=== PATIENT | female | born 1990 | race Caucasian/White ===

== ENCOUNTER 2017-10-08 13:53 | Emergency (ER) | payer BC ==
--- NOTE | 2017-10-08 14:41 | EDM.PDOC ---
ED HPI GENERAL MEDICAL PROBLEM - General Chief Complaint: Respiratory Problem Stated Complaint: COLD Time Seen by Provider: 10/08/17 13:54 Source of Information: Reports: Patient History Limitations: Reports: No Limitations - History of Present Illness INITIAL COMMENTS - FREE TEXT/NARRATIVE: HISTORY AND PHYSICAL: History of present illness: [Radha is a 27-year-old female here for cold symptoms 6 days. She states that she has had a cough, congestion, a ears feel full, burning in her lungs. She denies any fevers, nausea, vomiting, diarrhea, abdominal pain. She's not been taking anything for her symptoms. She does not smoke.] Review of systems: As per history of present illness and below otherwise all systems reviewed and negative. Past medical history: As per history of present illness and as reviewed below otherwise noncontributory. Surgical history: As per history of present illness and as reviewed below otherwise noncontributory. Social history: No reported history of drug or alcohol abuse. Family history: As per history of present illness and as reviewed below otherwise noncontributory. Physical exam: HEENT: Atraumatic, normocephalic, pupils reactive, negative for conjunctival pallor or scleral icterus, mucous membranes moist, throat clear, neck supple, nontender, trachea midline. Lungs: Clear to auscultation, breath sounds equal bilaterally, chest nontender. Heart: S1S2, regular, negative for clicks, rubs, or JVD. Abdomen: Soft, nondistended, nontender. Negative for masses or hepatosplenomegaly. Negative for costovertebral tenderness. Pelvis: Stable nontender. Genitourinary: Deferred. Rectal: Deferred. Extremities: Atraumatic, negative for cords or calf pain. Neurovascular unremarkable. Neuro: Awake, alert, oriented. Cranial nerves II through XII unremarkable. Cerebellum unremarkable. Motor and sensory unremarkable throughout. Exam nonfocal. Notes: Diagnostics: [Rapid strep, influenza, CBC, chest x-ray] Therapeutics: [] Impression: [Acute bronchitis] Plan: [#1 use inhaler every 4-6 hours as needed as discussed #2 follow-up with your primary care provider. Return to the ED as needed as discussed.] Definitive disposition and diagnosis as appropriate pending reevaluation and review of above. Onset: Gradual Duration: Week(s): (1) Bilateral Chest Pain Score (Numeric/FACES): 7 - Related Data Allergies Allergy/AdvReac Type Severity Reaction Status Date / Time No Known Allergies Allergy Verified 04/24/14 10:51 Home Meds: Home Meds Albuterol [Ventolin HFA] 1 puff INH Q4HR #1 inhaler 10/08/17 [Rx] Past Medical History - Past Health History Medical/Surgical History: Denies Medical/Surgical History - Infectious Disease History Infectious Disease History: Reports: Chicken Pox Social & Family History - Family History Family Medical History: Noncontributory - Tobacco Use Smoking Status *Q: Light Tobacco Smoker Years of Tobacco use: 10 Packs/Tins Daily: 0.1 Second Hand Smoke Exposure: No - Caffeine Use Caffeine Use: Reports: Coffee, Tea - Alcohol Use Days Per Week of Alcohol Use: 1 Number of Drinks Per Day: 2 Total Drinks Per Week: 2 - Recreational Drug Use Recreational Drug Use: No ED ROS GENERAL - Review of Systems Review Of Systems: ROS reveals no pertinent complaints other than HPI. ED EXAM, GENERAL - Physical Exam Exam: See Below (See dictation) Course - Vital Signs Last Recorded V/S: Last Vital Signs Temp 36.6 C 10/08/17 14:00 Pulse 78 10/08/17 14:00 Resp 14 10/08/17 14:00 BP 111/65 10/08/17 14:00 Pulse Ox 96 10/08/17 14:00 - Orders/Labs/Meds Orders: Active Orders 24 hr Category Date Time Status Chest 2V [CR] Stat Exams 10/08/17 14:16 Taken CULTURE STREP A CONFIRMATION [] Stat Lab 10/08/17 14:30 Results INFLUENZA A+B AG SCREEN [] Stat Lab 10/08/17 14:30 Ordered STREP SCRN A RAPID W CULT CONF [] Stat Lab 10/08/17 14:30 Ordered Labs: Laboratory Tests 10/08/17 Range/Units 14:24 WBC 6.56 (4.0-11.0) K/uL RBC 4.49 (4.30-5.90) M/uL Hgb 13.1 (12.0-16.0) g/dL Hct 40.2 (36.0-46.0) % MCV 89.5 (80.0-98.0) fL MCH 29.2 (27.0-32.0) pg MCHC 32.6 (31.0-37.0) g/dL RDW Std Deviation 44.0 (28.0-62.0) fl RDW Coeff of Crys 13 (11.0-15.0) % Plt Count 253 (150-400) K/uL MPV 9.00 (7.40-12.00) fL Neut % (Auto) 67.9 (48.0-80.0) % Lymph % (Auto) 24.2 (16.0-40.0) % [place] % (Auto) 6.3 (0.0-15.0) % Eos % (Auto) 1.1 (0.0-7.0) % Baso % (Auto) 0.5 (0.0-1.5) % Neut # (Auto) 4.5 (1.4-5.7) K/uL Lymph # (Auto) 1.6 (0.6-2.4) K/uL [place] # (Auto) 0.4 (0.0-0.8) K/uL Eos # (Auto) 0.1 (0.0-0.7) K/uL Baso # (Auto) 0.0 (0.0-0.1) K/uL Nucleated RBC % 0.0 /100WBC Nucleated RBCs # 0 K/uL Departure - Departure Time of Disposition: 15:20 Disposition: Home, Self-Care 01 Condition: Good Clinical Impression: Acute bronchitis Qualifiers: Bronchitis organism: unspecified organism Qualified Code(s): J20.9 - Acute bronchitis, unspecified - Discharge Information Prescriptions: Albuterol [Ventolin HFA] 1 puff INH Q4HR #1 inhaler Referrals: PCP,None [Primary Care Provider] - Forms: ED Department Discharge Additional Instructions: The following information is given to patients seen in the emergency department who are being discharged to home. This information is to outline your options for follow-up care. We provide all patients seen in our emergency department with a follow-up referral. The need for follow-up, as well as the timing and circumstances, are variable depending upon the specifics of your emergency department visit. If you don't have a primary care physician on staff, we will provide you with a referral. We always advise you to contact your personal physician following an emergency department visit to inform them of the circumstance of the visit and for follow-up with them and/or the need for any referrals to a consulting specialist. The emergency department will also refer you to a specialist when appropriate. This referral assures that you have the opportunity for follow-up care with a specialist. All of these measure are taken in an effort to provide you with optimal care, which includes your follow-up. Under all circumstances we always encourage you to contact your private physician who remains a resource for coordinating your care. When calling for follow-up care, please make the office aware that this follow-up is from your recent emergency room visit. If for any reason you are refused follow-up, please contact the [facility] Emergency Department at and asked to speak to the emergency department charge nurse. [#1 use inhaler every 4-6 hours as needed as discussed #2 follow-up with your primary care provider. Return to the ED as needed as discussed.] [facility] [address] [place] [id number] - My Orders Last 24 Hours: My Active Orders 10/08/17 14:16 Chest 2V [CR] Stat 10/08/17 14:30 CULTURE STREP A CONFIRMATION [RM] Stat INFLUENZA A+B AG SCREEN [RM] Stat STREP SCRN A RAPID W CULT CONF [RM] Stat - Assessment/Plan Last 24 Hours: My Active Orders 10/08/17 14:16 Chest 2V [CR] Stat 10/08/17 14:30 CULTURE STREP A CONFIRMATION [RM] Stat INFLUENZA A+B AG SCREEN [RM] Stat STREP SCRN A RAPID W CULT CONF [] Stat
[2017-10-08 16:05] VITALS: BP 114/64
--- NOTE | 2017-10-10 11:19 | CR ---
EXAM DATE: 10/08/17 PATIENT'S AGE: 27 Patient: ANGIE VILLAFUERTE Facility: [place], [place] Site . Site : 1990 Study: XRay Chest [id number]/31/2018 3:02:29 PM Ordering Physician: Doctor Pierson Final Report: INDICATION: Cough TECHNIQUE: Chest radiograph 2 views COMPARISON: None FINDINGS: Mediastinum: The heart silhouette is normal in size and morphology. The mediastinum is normal in appearance. Lungs: Both lungs are unremarkable in appearance. No sign of pleural effusion seen. No pneumothorax is identified. Bones and soft tissue: Unremarkable for age. IMPRESSION: 1. No acute cardiopulmonary disease is seen. Dictated by: Alexandru Montoya MD @ 10/08/2017 15:17:28 (Electronic Signature) Report Signed by Proxy. [facility] MED[facility] CENTERHumera
== END 2017-10-08 16:11 | disposition home or self-care (01) ==
LOC: MW.ED 13:53
DX: J20.9 Acute bronchitis, unspecified (principal); F17.210 Nicotine dependence, cigarettes, uncomplicated
CPT/HCPCS: 36415; 71046; 71046-26; 85025; 87081; 87804; 87880; 99283

== ENCOUNTER 2019-02-05 00:23 | Emergency (ER) | payer BC ==
[2019-02-05] MEDS ORDERED: Ondansetron 4 MG/2 ML SDV IVPUSH ONE (00:24)
[2019-02-05] MEDS ORDERED: Sodium Chloride 0.9% 1,000 ML IV ONE (00:24)
[2019-02-05] MEDS ORDERED: Ketorolac 30 MG/ML SDV IVPUSH ONE (00:24)
--- NOTE | 2019-02-05 00:25 | EDM.PDOC ---
ED HPI GENERAL MEDICAL PROBLEM - General Chief Complaint: Abdominal Pain Stated Complaint: ABDOMINAL PAIN Time Seen by Provider: 02/05/19 00:25 Source of Information: Reports: Patient - History of Present Illness INITIAL COMMENTS - FREE TEXT/NARRATIVE: HISTORY AND PHYSICAL: History of present illness: [PT presents with abdominal pain 5 out of 10 nonradiating throughout the day began after breakfast which included bryan worsen after supper tonight which was spaghetti with meat sauce no fever nausea vomiting chills sweats pain improved with Toradol and fluids Review of systems: As per history of present illness and below otherwise all systems reviewed and negative. Past medical history: As per history of present illness and as reviewed below otherwise noncontributory. Surgical history: As per history of present illness and as reviewed below otherwise noncontributory. Social history: No reported history of drug or alcohol abuse. Family history: As per history of present illness and as reviewed below otherwise noncontributory. Physical exam: HEENT: Atraumatic, normocephalic, pupils reactive, negative for conjunctival pallor or scleral icterus, mucous membranes moist, throat clear, neck supple, nontender, trachea midline. Lungs: Clear to auscultation, breath sounds equal bilaterally, chest nontender. Heart: S1S2, regular, negative for clicks, rubs, or JVD. Abdomen: Soft, nondistended, diffusely tender on exam. Negative for masses or hepatosplenomegaly. Negative for costovertebral tenderness. Pelvis: Stable nontender. Genitourinary: Deferred. Rectal: Deferred. Extremities: Atraumatic, negative for cords or calf pain. Neurovascular unremarkable. Neuro: Awake, alert, oriented. Cranial nerves II through XII unremarkable. Cerebellum unremarkable. Motor and sensory unremarkable throughout. Exam nonfocal. Diagnostics: [CBC CMP UA lipase HCG CT abdomen pelvis with ] Therapeutics: [ normal saline Toradol Zofran Toradol Zofran ] Impression: Abdominal Definitive disposition and diagnosis as appropriate pending reevaluation and review of above. Abdomen Pain Score (Numeric/FACES): 3 - Related Data Allergies Allergy/AdvReac Type Severity Reaction Status Date / Time No Known Allergies Allergy Verified 02/05/19 00:33 Home Meds: Home Meds . [No Known Home Meds] 02/05/19 [History] Past Medical History - Past Health History Medical/Surgical History: Denies Medical/Surgical History - Infectious Disease History Infectious Disease History: Reports: Chicken Pox Social & Family History - Family History Family Medical History: Noncontributory - Caffeine Use Caffeine Use: Reports: Coffee, Tea ED ROS GENERAL - Review of Systems Review Of Systems: See Below ED EXAM, GENERAL - Physical Exam Exam: See Below Course - Vital Signs Last Recorded V/S: Last Vital Signs Temp 97.0 F 02/05/19 00:31 Pulse 77 02/05/19 00:31 Resp 18 02/05/19 00:31 BP 136/76 02/05/19 00:31 Pulse Ox 98 02/05/19 00:31 - Orders/Labs/Meds Labs: Laboratory Tests 02/05/19 02/05/19 02/05/19 Range/Units 00:25 00:25 00:25 WBC 7.28 (4.0-11.0) K/uL RBC 4.81 (4.30-5.90) M/uL Hgb 14.5 (12.0-16.0) g/dL Hct 42.4 (36.0-46.0) % MCV 88.1 (80.0-98.0) fL MCH 30.1 (27.0-32.0) pg MCHC 34.2 (31.0-37.0) g/dL RDW Std Deviation 40.2 (28.0-62.0) fl RDW Coeff of Crys 13 (11.0-15.0) % Plt Count 275 (150-400) K/uL MPV 8.90 (7.40-12.00) fL Neut % (Auto) 46.2 L (48.0-80.0) % Lymph % (Auto) 44.1 H (16.0-40.0) % [place] % (Auto) 8.0 (0.0-15.0) % Eos % (Auto) 1.4 (0.0-7.0) % Baso % (Auto) 0.3 (0.0-1.5) % Neut # (Auto) 3.4 (1.4-5.7) K/uL Lymph # (Auto) 3.2 H (0.6-2.4) K/uL [place] # (Auto) 0.6 (0.0-0.8) K/uL Eos # (Auto) 0.1 (0.0-0.7) K/uL Baso # (Auto) 0.0 (0.0-0.1) K/uL Sodium (136-145) mmol/L Potassium (3.5-5.1) mmol/L Chloride (98-107) mmol/L Carbon Dioxide (21.0-32.0) mmol/L BUN (7.0-18.0) mg/dL Creatinine (0.6-1.0) mg/dL Est Cr Clr Drug Dosing mL/min Estimated GFR (MDRD) ml/min Glucose (74-106) mg/dL Calcium (8.5-10.1) mg/dL Total Bilirubin (0.2-1.0) mg/dL AST (15-37) IU/L ALT (14-63) IU/L Alkaline Phosphatase (46-116) U/L Total Protein (6.4-8.2) g/dL Albumin (3.4-5.0) g/dL Globulin (2.6-4.0) g/dL Albumin/Globulin Ratio (0.9-1.6) Lipase (73-393) U/L Urine Color YELLOW Urine Appearance CLEAR Urine pH 6.0 (5.0-8.0) Ur Specific [place] 1.015 (1.001-1.035) Urine Protein NEGATIVE (NEGATIVE) mg/dL Urine Glucose (UA) NEGATIVE (NEGATIVE) mg/dL Urine Ketones NEGATIVE (NEGATIVE) mg/dL Urine Occult Blood NEGATIVE (NEGATIVE) Urine Nitrite NEGATIVE (NEGATIVE) Urine Bilirubin NEGATIVE (NEGATIVE) Urine Urobilinogen 0.2 (<2.0) EU/dL Ur Leukocyte Esterase NEGATIVE (NEGATIVE) Urine HCG, Qual NEGATIVE (NEGATIVE) 02/05/19 Range/Units 00:25 WBC (4.0-11.0) K/uL RBC (4.30-5.90) M/uL Hgb (12.0-16.0) g/dL Hct (36.0-46.0) % MCV (80.0-98.0) fL MCH (27.0-32.0) pg MCHC (31.0-37.0) g/dL RDW Std Deviation (28.0-62.0) fl RDW Coeff of Crys (11.0-15.0) % Plt Count (150-400) K/uL MPV (7.40-12.00) fL Neut % (Auto) (48.0-80.0) % Lymph % (Auto) (16.0-40.0) % [place] % (Auto) (0.0-15.0) % Eos % (Auto) (0.0-7.0) % Baso % (Auto) (0.0-1.5) % Neut # (Auto) (1.4-5.7) K/uL Lymph # (Auto) (0.6-2.4) K/uL [place] # (Auto) (0.0-0.8) K/uL Eos # (Auto) (0.0-0.7) K/uL Baso # (Auto) (0.0-0.1) K/uL Sodium 139 (136-145) mmol/L Potassium 4.2 (3.5-5.1) mmol/L Chloride 104 (98-107) mmol/L Carbon Dioxide 27.5 (21.0-32.0) mmol/L BUN 20 H (7.0-18.0) mg/dL Creatinine 1.0 (0.6-1.0) mg/dL Est Cr Clr Drug Dosing 82.18 mL/min Estimated GFR (MDRD) > 60.0 ml/min Glucose 89 (74-106) mg/dL Calcium 9.1 (8.5-10.1) mg/dL Total Bilirubin 0.2 (0.2-1.0) mg/dL AST 21 (15-37) IU/L ALT 48 (14-63) IU/L Alkaline Phosphatase 89 (46-116) U/L Total Protein 7.7 (6.4-8.2) g/dL Albumin 4.3 (3.4-5.0) g/dL Globulin 3.4 (2.6-4.0) g/dL Albumin/Globulin Ratio 1.3 (0.9-1.6) Lipase 139 (73-393) U/L Urine Color Urine Appearance Urine pH (5.0-8.0) Ur Specific [place] (1.001-1.035) Urine Protein (NEGATIVE) mg/dL Urine Glucose (UA) (NEGATIVE) mg/dL Urine Ketones (NEGATIVE) mg/dL Urine Occult Blood (NEGATIVE) Urine Nitrite (NEGATIVE) Urine Bilirubin (NEGATIVE) Urine Urobilinogen (<2.0) EU/dL Ur Leukocyte Esterase (NEGATIVE) Urine HCG, Qual (NEGATIVE) Meds: Medications Discontinued Medications Generic Name Dose Route Start Last Admin Trade Name Mitchq PRN Reason Stop Dose Admin Sodium Chloride 1,000 mls @ 999 mls/hr 02/05/19 00:24 02/05/19 00:41 Normal Saline IV 02/05/19 01:24 999 mls/hr STAT ONE Administration Iopamidol 100 ml 02/05/19 01:35 02/05/19 01:35 Isovue Multipack-370 (76%) IVPUSH 02/05/19 01:36 100 ml ONETIME STA Administration Ketorolac Tromethamine 30 mg 02/05/19 00:24 02/05/19 00:41 Toradol IVPUSH 02/05/19 00:25 30 mg ONETIME ONE Administration Ondansetron HCl 8 mg 02/05/19 00:24 02/05/19 00:41 Zofran IVPUSH 02/05/19 00:25 8 mg ONETIME ONE Administration Departure - Departure Time of Disposition: 02:40 Disposition: Home, Self-Care 01 Condition: Good Clinical Impression: Abdominal pain - Discharge Information Forms: ED Department Discharge Additional Instructions: Medication as prescribed Return if symptoms persist or worsen Follow-up with general surgery, call phone number below to schedule appropriate follow-up [facility] - [facility] [address], [address] [place] [address] The following information is given to patients seen in the emergency department who are being discharged to home. This information is to outline your options for follow-up care. We provide all patients seen in our emergency department with a follow-up referral. The need for follow-up, as well as the timing and circumstances, are variable depending upon the specifics of your emergency department visit. If you don't have a primary care physician on staff, we will provide you with a referral. We always advise you to contact your personal physician following an emergency department visit to inform them of the circumstance of the visit and for follow-up with them and/or the need for any referrals to a consulting specialist. The emergency department will also refer you to a specialist when appropriate. This referral assures that you have the opportunity for follow-up care with a specialist. All of these measure are taken in an effort to provide you with optimal care, which includes your follow-up. Under all circumstances we always encourage you to contact your private physician who remains a resource for coordinating your care. When calling for follow-up care, please make the office aware that this follow-up is from your recent emergency room visit. If for any reason you are refused follow-up, please contact the [facility] emergency department at and asked to speak to the emergency department charge nurse.
[2019-02-05 01:12] LABS: BLOOD UREA NITROGEN,BUN 20 mg/dL (7.0-18.0); CARBON DIOXIDE,CO2 27.5 mmol/L (21.0-32.0); CHLORIDE,CL 104 mmol/L (98-107); GLUCOSE RANDOM 89 mg/dL (74-106); LIPASE 139 U/L (73-393); POTASSIUM,K 4.2 mmol/L (3.5-5.1); SODIUM,NA 139 mmol/L (136-145)
[2019-02-05] MEDS ORDERED: Iopamidol 755 MG/ML 500 ML Multipack Bottle IVPUSH STA (01:35)
--- NOTE | 2019-02-05 02:22 | CT ---
INDICATION: abdominal pain, intermittent past [address] ABDOMEN AND PELVIS WITH CONTRAST TECHNIQUE: Multidetector CT imaging was performed through the abdomen and pelvis following intravenous contrast administration using 100 mL Isovue 370. Coronal and sagittal reconstructions were generated. COMPARISON: None. FINDINGS: Lower chest: Lung bases are clear. Liver: Within normal limits. Gallbladder and bile ducts: Partially contracted gallbladder. No gallbladder wall thickening or calcified gallstones. No biliary dilation identified. Pancreas: Unremarkable. Spleen: Normal. Adrenals: No nodules or masses. Kidneys, ureters, and urinary bladder: No renal masses or hydronephrosis. No bladder mass or definite wall thickening. Gastrointestinal tract: Moderate wall thickening of the terminal ileum as seen on images 98-115 of series 201. No bowel obstruction. Normal appendix. Unremarkable colon. Vascular structures: Normal for age. Peritoneum: Minimal free fluid in the low pelvis. No loculated collection suggestive of abscess. No free air identified. Lymph nodes: No pathologically enlarged nodes identified. Reproductive organs: IUD within the uterus. No pelvic masses. Bones: Normal for age. IMPRESSION: 1. Moderate wall thickening of the terminal ileum consistent with nonspecific enteritis. Infectious etiologies and Crohn`s disease are the most likely considerations in a patient of this age. 2. IUD within the uterus. DOMINGA CHAUHAN MD [employer] Dictated by Nasir Chauhan MD @ 02/05/2019 2:20:40 AM Dictated by: Nasir Chauhan MD @ 02/05/2019 02:20:55 (Electronically Signed)
[2019-02-05 02:48] VITALS: BP 118/64; PULSE 71
== END 2019-02-05 02:45 | disposition home or self-care (01) ==
LOC: MW.ED 00:23
DX: R10.9 Unspecified abdominal pain (principal)
CPT/HCPCS: 36415; 74177; 80053; 81003; 81025; 83690; 85025; 96361; 96374; 96375; 99284; J1885; J2405; J7040; Q9967

== ENCOUNTER 2020-03-04 10:34 | Emergency (ER) | payer BC, OTHER ==
[2020-03-04 10:57] VITALS: BP 130/70; PULSE 72
--- NOTE | 2020-03-04 11:26 | EDM.PDOC ---
ED HPI GENERAL MEDICAL PROBLEM - General Chief Complaint: Respiratory Problem Stated Complaint: POSITIVE COVID RESULTS Time Seen by Provider: 03/04/20 10:40 Source of Information: Reports: Patient History Limitations: Reports: No Limitations - History of Present Illness INITIAL COMMENTS - FREE TEXT/NARRATIVE: Presents reporting a feeling of shortness of breath. She had some symptoms of COVID 6 days ago including fever, cough and body aches. She was tested yesterday and is COVID positive. Since her symptoms started, her fever has gone away and her body aches have improved as well as her cough. Her only concern now is a feeling of shortness of breath that includes some "heaviness" over her upper chest. She does not have a primary care provider and her friends told her "you better get checked out". Quarantined and has been working from home. He has no medical problems and takes no medications. Does not smoke cigarettes or vape. - Related Data Allergies Allergy/AdvReac Type Severity Reaction Status Date / Time No Known Allergies Allergy Verified 02/05/19 00:33 Home Meds: Home Meds Doxycycline [Vibramycin] 100 mg PO BID 12/30/14 [History] Sulfamethoxazole/Trimethoprim [Bactrim Ds Tablet] 1 each PO BID 12/30/14 [History] . [No Known Home Meds] 02/05/19 [History] Past Medical History - Past Health History Medical/Surgical History: Denies Medical/Surgical History - Infectious Disease History Infectious Disease History: Reports: Chicken Pox - Past Surgical History HEENT Surgical History: Reports: Naso-Sinus Surgery Social & Family History - Family History Family Medical History: Noncontributory - Caffeine Use Caffeine Use: Reports: Coffee, Tea ED ROS GENERAL - Review of Systems Review Of Systems: Comprehensive ROS is negative, except as noted in HPI. ED EXAM, GENERAL - Physical Exam Exam: See Below Exam Limited By: No Limitations General Appearance: Alert, No Apparent Distress Ears: Normal External Exam Nose: Normal Inspection Throat/Mouth: Normal Inspection Head: Atraumatic, Normocephalic Neck: Normal Inspection Respiratory/Chest: No Respiratory Distress, Lungs Clear, Normal Breath Sounds, Chest Non-Tender Cardiovascular: Normal Peripheral Pulses, Regular Rate, Rhythm, No Edema, No Murmur Extremities: Normal Inspection Neurological: Alert, Oriented Psychiatric: Normal Affect, Normal Mood Skin Exam: Warm, Dry, Intact, Normal Color, No Rash Course - Vital Signs Last Recorded V/S: Last Vital Signs Temp 35.8 C L 03/04/20 10:53 Pulse 72 03/04/20 10:53 Resp 16 03/04/20 10:53 BP 130/70 03/04/20 10:53 Pulse Ox 98 03/04/20 10:53 - Orders/Labs/Meds Orders: Active Orders 24 hr Category Date Time Status EKG 12 Lead [EKG Documentation Completion] [RC] STAT Care 03/04/20 11:17 Ordered Departure - Departure Time of Disposition: 11:27 Disposition: Home, Self-Care 01 Clinical Impression: COVID-19 - Discharge Information Additional Instructions: The following information is given to patients seen in the emergency department who are being discharged to home. This information is to outline your options for follow-up care. We provide all patients seen in our emergency department with a follow-up referral. The need for follow-up, as well as the timing and circumstances, are variable depending upon the specifics of your emergency department visit. If you don't have a primary care physician on staff, we will provide you with a referral. We always advise you to contact your personal physician following an emergency department visit to inform them of the circumstance of the visit and for follow-up with them and/or the need for any referrals to a consulting specialist. The emergency department will also refer you to a specialist when appropriate. This referral assures that you have the opportunity for follow-up care with a specialist. All of these measure are taken in an effort to provide you with optimal care, which includes your follow-up. Under all circumstances we always encourage you to contact your private physician who remains a resource for coordinating your care. When calling for follow-up care, please make the office aware that this follow-up is from your recent emergency room visit. If for any reason you are refused follow-up, please contact the [facility] Emergency Department at and asked to speak to the emergency department charge nurse. 1. Your COVID symptoms seem to be improving. Your lungs are clear, you do not have a fever. Your body aches are improving. An EKG showed no cardiac problems. Tylenol or ibuprofen for fever and body aches. Drink plenty of fluids and rest. 2. Continue your quarantine at home until 14 days since your symptoms started. Sepsis Event Note (ED) - Evaluation Sepsis Screening Result: No Definite Risk - Focused Exam Vital Signs: Vital Signs Temp Pulse Resp BP Pulse Ox 03/04/20 10:53 35.8 C L 72 16 130/70 98 - My Orders Last 24 Hours: My Active Orders 03/04/20 11:17 EKG 12 Lead [EKG Documentation Completion] [RC] STAT - Assessment/Plan Last 24 Hours: My Active Orders 03/04/20 11:17 EKG 12 Lead [EKG Documentation Completion] [RC] STAT
== END 2020-03-04 11:49 | disposition home or self-care (01) ==
LOC: MW.ED 10:34
DX: U07.1 COVID-19 (principal)
CPT/HCPCS: 93005; 99282; 99284-25

== ENCOUNTER 2020-03-04 22:48 | Emergency (ER) | payer BC, OTHER ==
--- NOTE | 2020-03-04 23:21 | EDM.PDOC ---
ED HPI GENERAL MEDICAL PROBLEM - General Chief Complaint: General Stated Complaint: COVID, CHEST, ARM PAIN Time Seen by Provider: 03/04/20 22:57 Source of Information: Reports: Patient History Limitations: Reports: No Limitations - History of Present Illness INITIAL COMMENTS - FREE TEXT/NARRATIVE: 30-year-old female with no past medical history presents with diffuse chest pressure, shortness of breath, runny nose, diffuse myalgia, generalized malaise. She was tested last Tuesday for coronavirus and was informed that she was positive yesterday. She denies fever, chills, sore throat. She was seen earlier today for her symptoms and was discharged. Her physician friend in [place] prescribed her today prednisone 40 mg daily for 8 days and albuterol inhaler. She took her first dose today. She also used her inhaler few hours WEB SERVICES PROFESSIONAL. She does not have a PCP in town. She does not smoke. 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 ROS: A 10-point review of systems, other than pertinent positives and negatives as stated per HPI, is otherwise negative Past medical history: No additional pertinent history Past Surgical history: No additional pertinent history Social history: No additional pertinent history Family history: No additional pertinent history PHYSICAL EXAM General: AOx4, GCS = 15, No distress, speaking full sentences HEENT: dry mucous membrane Neck: supple, no meningismus, no Kernig or Brudzinski Cardiac: S1S2 RRR Respiratory: CTAB, no crackles or rales, no wheezing Abdomen: Soft, nontender, no rebound or guarding, nondistended, no pulsatile mass. Back: nontender Musculoskeletal: NVI distally, no deformity Neuro: No focal deficits, CN 2 - 12 WNL. chest area Pain Score (Numeric/FACES): 7 - Related Data Allergies Allergy/AdvReac Type Severity Reaction Status Date / Time No Known Allergies Allergy Verified 03/04/20 22:58 Home Meds: Home Meds Albuterol Sulfate [Albuterol Sulfate Hfa] 1 inh INH Q6HR PRN 03/04/20 [History] predniSONE [Prednisone] 40 mg PO DAILY 03/04/20 [History] Benzonatate 100 mg PO BID #10 capsule 03/05/20 [Rx] Past Medical History - Past Health History Medical/Surgical History: Denies Medical/Surgical History Cardiovascular History: Reports: None Respiratory History: Reports: None Gastrointestinal History: Reports: None Genitourinary History: Reports: None LEAK DETECTION ENGINEER History: Reports: None Musculoskeletal History: Reports: None Neurological History: Reports: None Psychiatric History: Reports: None Endocrine/Metabolic History: Reports: None Insulin Pump Model and Manager Business Operations: None Hematologic History: Reports: None Immunologic History: Reports: None Oncologic (Cancer) History: Reports: None Dermatologic History: Reports: None - Infectious Disease History Infectious Disease History: Reports: None - Past Surgical History Head Surgeries/Procedures: Reports: None HEENT Surgical History: Reports: Naso-Sinus Surgery Social & Family History - Family History Family Medical History: Noncontributory - Tobacco Use Smoking Status *Q: Never Smoker - Caffeine Use Caffeine Use: Reports: Coffee - Recreational Drug Use Recreational Drug Use: No ED ROS GENERAL - Review of Systems Review Of Systems: Comprehensive ROS is negative, except as noted in HPI. ED EXAM, GENERAL - Physical Exam Exam: See Below (See dictation) EKG INTERPRETATION EKG Interpretation Comments: 70 Bpm, NSR, normal QRS interval, no STEMI. EKG and rhythm strip interpreted by me at 1209 Course - Vital Signs Last Recorded V/S: Last Vital Signs Temp 97 F 03/04/20 23:00 Pulse 71 03/05/20 00:18 Resp 18 03/05/20 00:18 BP 110/80 03/05/20 00:18 Pulse Ox 95 03/05/20 00:18 - Orders/Labs/Meds Orders: Active Orders 24 hr Category Date Time Status Communication Order [RC] STAT Care 03/05/20 00:10 Active - Re-Assessments/Exams Free Text/Narrative Re-Assessment/Exam: 03/05/20 00:26 Patient sat = 97% after ambulation. She has normal vital signs. I advised the patient to return to the ER for reevaluation if symptoms worsened, including fever, worsening pain, or any other worrisome symptoms. I instructed the patient to follow up with their PCP within 2-3 days. MEDICAL DECISION MAKING: I reviewed the patients past medical records, lab and radiographic findings. I discussed the case with the patient. My differential diagnosis included: COVID, pneumonia, ARDS. She was evaluated for the symptoms described in the history of present illness. She was evaluated in the context of the global COVID-19 pandemic, which necessitated consideration that the patient might be at risk for infection with the SARS-CoV-2 virus that causes COVID-19. Institutional protocols and algorithms that pertain to the evaluation of patients at risk for COVID-19 are in a state of rapid change based on information released by regulatory bodies including the CDC and federal and state organizations. These policies and algorithms were followed during the patient's care. I wore full PPE, N95, face shield, gown and gloves throughout my evaluation and care of this patient. I recommended home isolation. given home isolation instructions. Patient was in no respiratory distress, otherwise well appearing. I instructed patient to return immediately for worsening symptoms, sob, chest pain, lightheadedness or other concerns. Patient voiced understanding and questions answered. Departure - Departure Time of Disposition: 00:27 Disposition: Home, Self-Care 01 Condition: Good Clinical Impression: COVID-19 - Discharge Information *PRESCRIPTION DRUG MONITORING PROGRAM REVIEWED*: Not Applicable *COPY OF PRESCRIPTION DRUG MONITORING REPORT IN PATIENT ANASTACIA: Not Applicable Prescriptions: Benzonatate 100 mg PO BID #10 capsule Instructions: COVID-19 Frequently Asked Questions, COVID-19, COVID-19: How to Protect Yourself and Others - CDC, Prevent the Spread of COVID-19 if You Are Sick - CDC Referrals: PCP,None [Primary Care Provider] - Forms: ED Department Discharge Additional Instructions: The need for follow-up, as well as the timing and circumstances, are variable depending upon the specifics of your emergency department visit. If you don't have a primary care physician on staff, we will provide you with a referral. We always advise you to contact your personal physician following an emergency department visit to inform them of the circumstance of the visit and for follow-up with them and/or the need for any referrals to a consulting specialist. The emergency department will also refer you to a specialist when appropriate. This referral assures that you have the opportunity for follow-up care with a specialist. All of these measure are taken in an effort to provide you with optimal care, which includes your follow-up. Under all circumstances we always encourage you to contact your private physician who remains a resource for coordinating your care. When calling for follow-up care, please make the office aware that this follow-up is from your recent emergency room visit. If for any reason you are refused follow-up, please contact the [facility] Emergency Department at and asked to speak to the emergency department charge nurse. If you do not have a primary care doctor, please follow up with the clinics below within 3-5 days. [facility] - Primary Care [address] [place] [id number] [facility] [address] [place] [id number] Sepsis Event Note (ED) - Evaluation Sepsis Screening Result: No Definite Risk - Focused Exam Vital Signs: Vital Signs Temp Pulse Resp BP Pulse Ox 03/05/20 00:18 71 18 110/80 95 03/04/20 23:00 97 F 80 18 139/88 97 - My Orders Last 24 Hours: My Active Orders 03/05/20 00:10 Communication Order [RC] STAT - Assessment/Plan Last 24 Hours: My Active Orders 03/05/20 00:10 Communication Order [RC] STAT
[2020-03-05 00:18] VITALS: BP 110/80; PULSE 71
--- NOTE | 2020-03-05 00:24 | CR ---
INDICATION: Shortness of breath, chest pressure, dizziness, right arm pain. Positive covid TECHNIQUE: Chest radiograph 1 view COMPARISON: 10/08/17 FINDINGS: Mediastinum: The mediastinum is normal in appearance. The heart silhouette is normal in size and morphology. Lung: Both lungs are unremarkable in appearance. No sign of pleural effusion seen. No pneumothorax is identified. Bone and Soft tissue: Unremarkable for age. IMPRESSION: 1. No acute cardiopulmonary disease is seen. Dictated by: Alexandru Montoya MD @ 03/05/2020 00:23:13 (Electronically Signed)
== END 2020-03-05 00:35 | disposition home or self-care (01) ==
LOC: MW.ED 22:48
DX: U07.1 COVID-19 (principal); Z79.899 Other long term (current) drug therapy
CPT/HCPCS: 71045; 71045-26; 93005; 99283; 99285-25

== ENCOUNTER 2020-11-08 18:19 | Emergency (ER) | payer BC ==
[2020-11-08] MEDS ORDERED: Acetaminophen/HYDROcodone 325-10 MG Tab PO ONE (18:38)
--- NOTE | 2020-11-08 18:44 | EDM.PDOC ---
<Cayetano Ramos - Last Filed: 11/08/20 18:38> ED HPI GENERAL MEDICAL PROBLEM - General Stated Complaint: FELL OFF HORSE, RT SIDE PAIN Time Seen by Provider: 11/08/20 18:32 - History of Present Illness INITIAL COMMENTS - FREE TEXT/NARRATIVE: 30-year-old female who is otherwise well presents with left SI joint and left hip pain after falling off a horse. The horse was stationary but was spooked his caused her to come up out of the saddle and landed seated on the horses now just in front of the saddle the horse then spoke again spine leading her to fall she landed relatively flat on her back but primarily on the left SI joint area. Patient drove herself here. She has significant pain with sitting and significant pain with ambulation but is able to ambulate. She did not strike her head she did not lose consciousness she denies any neck or midline back pain no chest pain no shortness of breath no abdominal pain no flank pain no current medications. - Related Data Allergies Allergy/AdvReac Type Severity Reaction Status Date / Time No Known Allergies Allergy Verified 11/08/20 19:20 Home Meds: Home Meds Cyclobenzaprine [Flexeril] 10 mg PO TID PRN #20 tab 11/08/20 [Rx] Ibuprofen 600 mg PO Q6HR PRN #30 tablet 11/08/20 [Rx] traMADol [Ultram] 50 mg PO Q6H PRN #12 tab 11/08/20 [Rx] Past Medical History - Past Health History Medical/Surgical History: Denies Medical/Surgical History Cardiovascular History: Reports: None Respiratory History: Reports: None Gastrointestinal History: Reports: None Genitourinary History: Reports: None WORD PROCESSING MACHINE OPERATOR History: Reports: None Musculoskeletal History: Reports: None Neurological History: Reports: None Psychiatric History: Reports: None Endocrine/Metabolic History: Reports: None Insulin Pump Model and Cage Cashier: None Hematologic History: Reports: None Immunologic History: Reports: None Oncologic (Cancer) History: Reports: None Dermatologic History: Reports: None - Infectious Disease History Infectious Disease History: Reports: None - Past Surgical History Head Surgeries/Procedures: Reports: None HEENT Surgical History: Reports: Naso-Sinus Surgery Social & Family History - Family History Family Medical History: No Pertinent Family History - Caffeine Use Caffeine Use: Reports: Coffee ED ROS GENERAL - Review of Systems Review Of Systems: See Below Free Text/Narrative/Comment: General: No fever. Skin: No rash. Eyes: No vision problems. ENT: No sore throat. Neck: No neck stiffness. Respiratory: No shortness of breath. Cardiac: No chest pain. Gastrointestinal: No nausea, vomiting or abdominal pain. Urinary: No dysuria. Musculoskeletal: Per HPI Neurologic: No headache. ED EXAM, GENERAL - Physical Exam Exam: See Below Free Text/Narrative:: General Appearance: No acute distress, appears comfortable Skin: No rash HEENT: Normocephalic/atraumatic, sclera anicteric, mucous membranes moist Neck: Normal range of motion, no midline tenderness or step-off Chest and Lungs: Bilateral breath sounds, clear to auscultation Cardiovascular: Regular rate and rhythm, no murmur Abdomen: Soft, non-tender Back: Midline tenderness step-off or deformity no flank ecchymosis some left inferior flank muscular tenderness Musculoskeletal: No focal tenderness swelling deformities noted in the bilateral upper extremity range of motion in the right hip is painless though she has pain in the left posterior pelvis with right hip flexion, no focal tenderness swelling or deformities noted in the left knee. Patient has no pain with left hip logroll further left hip range of motion deferred pending x-ray Neurologic: Awake, alert, no obvious deficits, moving all extremities Psychiatric: Appropriate, cooperative Departure - Departure Disposition: Home, Self-Care 01 Clinical Impression: Acute pain of left hip Fall from horse Qualifiers: Encounter type: initial encounter Qualified Code(s): V80.010A - Animal-rider injured by fall from or being thrown from horse in noncollision accident, initial encounter - Discharge Information Instructions: Musculoskeletal Pain, Joint Pain, [id number] Referrals: PCP,None [Primary Care Provider] - Additional Instructions: You were seen and evaluated in the ER today secondary to pain to your left hip as a result of falling off her horse. The x-rays and CT scans revealed no acute pathology identified in the bony structures. Your pain is most likely secondary to muscle/ligamentous injury. You will be given a prescription for Flexeril, ibuprofen, and Ultram to take as needed for pain and discomfort. Please make an appointment follow-up with your doctor if pain is not resolved in the next 2 to 3 days for further evaluation and pain management. The following information is given to patients seen in the emergency department who are being discharged to home. This information is to outline your options for follow-up care. We provide all patients seen in our emergency department with a follow-up referral. The need for follow-up, as well as the timing and circumstances, are variable depending upon the specifics of your emergency department visit. If you don't have a primary care physician on staff, we will provide you with a referral. We always advise you to contact your personal physician following an emergency department visit to inform them of the circumstance of the visit and for follow-up with them and/or the need for any referrals to a consulting specialist. The emergency department will also refer you to a specialist when appropriate. This referral assures that you have the opportunity for follow-up care with a specialist. All of these measure are taken in an effort to provide you with optimal care, which includes your follow-up. Under all circumstances we always encourage you to contact your private physician who remains a resource for coordinating your care. When calling for follow-up care, please make the office aware that this follow-up is from your recent emergency room visit. If for any reason you are refused follow-up, please contact the [facility] Emergency Department at and asked to speak to the emergency department charge nurse. [facility] - Primary Care [address] [place] [address] [id number] [address] [id number] - Assessment/Plan Assessment:: 30-year-old female presents after falling off the essentially stationary course. Given his trauma activation criteria not felt to be met. Primary survey intact secondary survey is atraumatic with the exception of the left hip and posterior pelvic region. I believe you can clinically clear the spine chest abdomen and pelvis. Left hip films with pelvis have been ordered as well as hCG and urinalysis. If she has hematuria on her urinalysis then consider CT scan at that time to evaluate for any renal injury but given the lack of any flank ecchymosis the lack of any anterior abdominal pain or tenderness do not think empiric CT imaging is necessary at this point. Results of these initial tests are pending at this time and patient signed out to Dr. Carter pending results and final disposition. <Zach Carter - Last Filed: 11/08/20 21:51> ED HPI GENERAL MEDICAL PROBLEM - History of Present Illness INITIAL COMMENTS - FREE TEXT/NARRATIVE: 9:47 PM: Signout received by me at 7 PM. Patient's UA reveals no significant RBCs. Patient's pelvis and hip x-ray reveals no acute fracture. Upon reevaluation of the patient she reports that she feels like there is something still wrong having significant pain to her left hip. Have offered a CT scan of her pelvis which she has agreed to. Patient was also given Toradol 60 mg IM to assist with her pain and discomfort. Patient had a CT scan of her pelvis without contrast which reveals no significant pathology or acute fracture. Patient feels much more reassured and feels much more comfortable going home knowing that her CT scan revealed no acute fracture. Patient be discharged home with a prescription for ibuprofen, Flexeril and Ultram. Patient reports that she is driving home and does not want anything stronger prior to leaving. Reassessment at the time of disposition demonstrates that the patient is in no acute distress. The patient has remained stable throughout the entire ED visit and is without objective evidence for acute process requiring urgent intervention or hospitalization. The patient is stable for discharge, counseling is provided as documented above, discussed symptomatic treatment and specific conditions for return. I have spoken with the patient/caregiver and discussed todays findings, in addition to providing specific details for the plan of care. Questions are answered and there is agreement with the plan. L flank Pain Score (Numeric/FACES): 10 Course - Vital Signs Last Recorded V/S: Last Vital Signs Temp 97.6 F 11/08/20 18:20 Pulse 81 11/08/20 18:20 Resp 17 11/08/20 18:20 BP 124/81 11/08/20 18:20 Pulse Ox 97 11/08/20 18:20 - Orders/Labs/Meds Labs: Laboratory Tests 11/08/20 11/08/20 Range/Units 18:55 18:55 Urine Color YELLOW Urine Appearance SLT CLOUDY Urine pH 5.5 (5.0-8.0) Ur Specific Agenda >= 1.030 (1.001-1.035) Urine Protein NEGATIVE (NEGATIVE) mg/dL Urine Glucose (UA) NEGATIVE (NEGATIVE) mg/dL Urine Ketones NEGATIVE (NEGATIVE) mg/dL Urine Occult Blood SMALL H (NEGATIVE) Urine Nitrite NEGATIVE (NEGATIVE) Urine Bilirubin NEGATIVE (NEGATIVE) Urine Urobilinogen 0.2 (<2.0) EU/dL Ur Leukocyte Esterase NEGATIVE (NEGATIVE) Urine RBC 1-3 (0-2/HPF) Urine WBC 0-1 (0-5/HPF) Ur Epithelial Cells FEW (NONE-FEW) Urine Bacteria RARE (NEGATIVE) Urine Mucus LIGHT (NONE-MOD) Urine HCG, Qual NEGATIVE (NEGATIVE) Meds: Medications Discontinued Medications Generic Name Dose Route Start Last Admin Trade Name Freq PRN Reason Stop Dose Admin Hydrocodone Bitart/Acetaminophen 1 tab 11/08/20 18:38 11/08/20 18:45 Acetaminophen/Hydrocodone 325-10 Mg Tab PO 11/08/20 18:39 1 tab ONETIME ONE Administration Bisacodyl 20 mg 11/08/20 21:46 Bisacodyl 10 Mg Supp RECTAL 11/08/20 21:47 ONETIME ONE Bisacodyl 10 mg 11/08/20 21:46 Bisacodyl 5 Mg Tab PO 11/08/20 21:47 ONETIME ONE Ketorolac Tromethamine 60 mg 11/08/20 20:30 11/08/20 21:07 Ketorolac 60 Mg/2 Ml Sdv IM 11/08/20 20:31 60 mg ONETIME ONE Administration Magnesium Citrate 100 ml 11/08/20 21:46 Magnesium Citrate Solution 296 Ml Bottle PO 11/08/20 21:47 ONETIME ONE Departure - Departure Time of Disposition: 21:49 Preliminary Cause of *Q: Cardiac Arrest Condition: Good Sepsis Event Note (ED) - Focused Exam Vital Signs: Vital Signs Temp Pulse Resp BP Pulse Ox 11/08/20 18:20 97.6 F 81 17 124/81 97
--- NOTE | 2020-11-08 20:05 | CR ---
HISTORY: Left sacroiliac joint and hip pain. TECHNIQUE: AP pelvis and 2 views of the left hip. COMPARISON: No prior. FINDINGS: Mild femoral head-neck junction osseous bumps bilaterally. No hip joint space narrowing. No acute fracture. Pubic symphysis and sacroiliac joints intact. There is an IUD within the pelvis. IMPRESSION: No hip joint space narrowing or fracture. Dictated by Slick Shahid MD @ 11/08/2020 8:03:[address] Slick Shahid @ Nov 08 2020 8:03PM
[2020-11-08] MEDS ORDERED: Ketorolac 60 MG/2 ML SDV IM ONE (20:30)
--- NOTE | 2020-11-08 21:39 | CT ---
Indication: Fall from horse, pain Technique: Noncontrast CT pelvis. Please note that all CT scans at this facility use dose modulation, iterative reconstruction, and/or weight-based dosing when appropriate to reduce radiation dose to as low as reasonably achievable. Comparison: X-rays November 08, [address] February 05, 2019 Findings: Sacroiliac joints are normal. No diastasis. No sacral fracture. No pubic rami fracture. Intact acetabulum bilaterally and intact proximal femurs. No soft tissue hematoma. No dislocation. IUD is centrally located in the uterus. Normal ovaries. No pelvic free fluid. Impression: Normal CT pelvis. No fracture. Please note that all CT scans at this facility use dose modulation, iterative reconstruction, and/or weight-based dosing when appropriate to reduce radiation dose to as low as reasonably achievable. Dictated by Iglesia Saldaña MD @ 11/08/2020 9:37:[address] Iglesia Saldaña @ Nov 08 2020 9:37PM
[2020-11-08] MEDS ORDERED: Bisacodyl 10 MG Supp RECTAL ONE (21:46)
[2020-11-08] MEDS ORDERED: Bisacodyl 5 MG Tab PO ONE (21:46)
[2020-11-08] MEDS ORDERED: Magnesium Citrate Solution 296 ML Bottle PO ONE (21:46)
[2020-11-08 22:34] VITALS: BP 121/64; PULSE 77
== END 2020-11-08 22:23 | disposition home or self-care (01) ==
LOC: MW.ED 18:19
DX: M25.552 Pain in left hip (principal); V80.010A Animal-rider injured by fall from or being thrown from horse in noncollision accident, initial encounter
CPT/HCPCS: 72192; 73502; 81001; 81025; 96372; 99284; A9270; J1885

== ENCOUNTER 2020-12-24 15:31 | Observation (INO) | payer BC ==
--- NOTE | 2020-12-24 15:59 | EDM.PDOC ---
ED HPI GENERAL MEDICAL PROBLEM - General Chief Complaint: Skin Complaint Stated Complaint: L HAND INJURY Time Seen by Provider: 12/24/20 15:58 Source of Information: Reports: Patient History Limitations: Reports: No Limitations - History of Present Illness INITIAL COMMENTS - FREE TEXT/NARRATIVE: HISTORY AND PHYSICAL: History of present illness: Patient is a 30-year-old female who presents to the emergency room with complaints of an infected sore to her left palm with red streaking going up her arm and into her distal bicep. Patient states that initially started on Tuesday with a small pinpoint red area to the palmar surface near the base of her left thumb that slowly got larger. Over the past 24 hours the redness has extended up her arm. She was seen at the walk-in clinic today and given a shot of IM Rocephin. The provider did make a jamie where the patient could still feel comfortable if the redness had extended. A few hours after the redness has extended past the jamie which made her concerned that she needed further care. The pain does extend up her bicep into her posterior shoulder. Patient denies any fever, chills, headache, change in vision, syncope or near syncope. Denies any chest pain, back pain, shortness of breath or cough. Denies any abdominal pain, nausea, vomiting, diarrhea, constipation or dysuria. Has not noted any blood in urine or stool. Patient has been eating and drinking appropriately. Review of systems: As per history of present illness and below otherwise all systems reviewed and negative. Past medical history: As per history of present illness and as reviewed below otherwise noncontributory. Surgical history: As per history of present illness and as reviewed below otherwise noncontributory. Social history: See social history for further information Family history: As per history of present illness and as reviewed below otherwise noncontributory. Physical exam: General: Well developed and well nourished. Alert and orientated x 3. Nontoxic in appearance and in no acute distress. Vital signs are stable and have been reviewed by me. Nursing notes were reviewed. HEENT: Atraumatic, normocephalic, pupils equal and reactive bilaterally, negative for conjunctival pallor or scleral icterus, mucous membranes moist, TMs normal bilaterally, throat clear, neck supple, nontender, trachea midline. No drooling or trismus noted. No meningeal signs. No hot potato voice noted. Lungs: Clear to auscultation bilaterally. No wheezes, rales, or rhonchi. Chest nontender. Normal work of breathing, no accessory muscles used. Heart: S1S2, regular rate and rhythm without overt murmur, gallops, or rubs. No JVD. No peripheral edema Abdomen: Soft, nondistended, nontender. Normoactive bowel sounds. Negative for masses or costovertebral tenderness. Skin: 6 mm pustule to the left palmar surface near the base of the thumb with erythema following vasculature up her forearm and into the distal bicep. Remaining skin is intact, warm, dry. No lesions or rashes noted. Hematologic: No petechiae or purpra. Mucosa appropriate color and normal nail bed color and refill. Extremities: Atraumatic, moves all extremities per self without difficulty or deficits, negative for cords or calf pain. Neurovascular unremarkable. Neuro: Awake, alert, oriented. Cranial nerves II through XII unremarkable. Cerebellum unremarkable. Motor and sensory unremarkable throughout. Exam nonfocal. Psychiatric: Mood and affect are appropriate. Normal thought process. Answering questions appropriately. Notes: *This patient was seen and evaluated during the 2019 SARS-CoV-2 novel coronavirus pandemic period. Community viral transmission is ongoing at time of this encounter and the emergency department is operating under pandemic response procedures. Patient is a 30-year-old female who presents to the emergency room with complaints of worsening localized infection that is now streaking up her forearm. She states she did receive an IM injection of antibiotic a few hours prior to arrival but states the redness is worsening which "scares me". She is agreeable to basic lab work as this was not done in the clinic. I will also get an x-ray to make sure there is no foreign body or gas in the wound site. She does have full range of motion of the hand without any difficulty or deficits. Forearm lymphangitis due to cellulitis of hand wound was cleansed. X-ray and lab work are unremarkable. We did discuss Bactrim outpatient versus IV therapy, patient prefers to stay as the redness is worsening within the last few hours. I do agree that she should receive IV antibiotics. Dr. Rizo was consulted and is agreeable to keeping her overnight. Diagnostics: CBC, CMP, UA, urine , hand x-ray, blood cultures x2 Therapeutics: Vancomycin Impression: Lymphagitis secondary to cellulitis Plan: Observation admission to [facility] Definitive disposition and diagnosis as appropriate pending reevaluation and review of above. left hand Pain Score (Numeric/FACES): 8 - Related Data Allergies Allergy/AdvReac Type Severity Reaction Status Date / Time No Known Allergies Allergy Verified 12/24/20 15:48 Home Meds: Home Meds . 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 Musculoskeletal History: Reports: None Neurological History: Reports: None Psychiatric History: Reports: None Endocrine/Metabolic History: Reports: None Insulin Pump Model and Cordwood Cutter Helper: None Hematologic History: Reports: None Immunologic History: Reports: None Oncologic (Cancer) History: Reports: None Dermatologic History: Reports: None - Infectious Disease History Infectious Disease History: Reports: Novel Coronavirus - Past Surgical History Head Surgeries/Procedures: Reports: None HEENT Surgical History: Reports: Naso-Sinus Surgery Social & Family History - Family History Family Medical History: No Pertinent Family History - Tobacco Use Tobacco Use Status *Q: Never Tobacco User - Caffeine Use Caffeine Use: Reports: Coffee - Recreational Drug Use Recreational Drug Use: No ED ROS GENERAL - Review of Systems Review Of Systems: Comprehensive ROS is negative, except as noted in HPI. ED EXAM, SKIN/RASH Exam: See Below (See dictation) Course - Vital Signs Last Recorded V/S: Last Vital Signs Temp 97.3 F 12/24/20 15:45 Pulse 84 12/24/20 17:02 Resp 18 12/24/20 17:02 BP 128/72 12/24/20 17:02 Pulse Ox 98 12/24/20 17:02 - Orders/Labs/Meds Orders: Active Orders 24 hr Category Date Time Status Admission Status [Patient Status] [ADT] Stat ADT 12/24/20 17:03 Active COMPREHENSIVE METABOLIC PN,CMP [CHEM] Stat Lab 12/24/20 16:20 Received CORONAVIRUS COVID-19 JESSIE [MOLEC] Stat Lab 12/24/20 16:53 Received CULTURE BLOOD [BC] Stat Lab 12/24/20 16:20 Received CULTURE BLOOD [BC] Stat Lab 12/24/20 16:25 Received HCG QUALITATIVE,URINE [URCHEM] Stat Lab 12/24/20 17:02 Ordered LACTATE SEPSIS W/ REFLEX [CHEM] Stat Lab 12/24/20 16:20 Received UA RFX DICK AND CULT IF INDIC [URIN] Stat Lab 12/24/20 17:02 Ordered Sodium Chloride 0.9% [Normal Saline] 1,000 ml Med 12/24/20 17:04 Active IV STAT Vancomycin 1 gm Med 12/24/20 17:03 Active Sodium Chloride 0.9% [Normal Saline (AdvBag)] 250 ml IV ONETIME Blood Culture x2 Reflex Set [OM.PC] Stat Oth 12/24/20 15:55 Ordered Medication Orders Vancomycin HCl 1 gm/ Sodium (Chloride) 250 mls @ 166 mls/hr IV ONETIME ONE Stop: 12/24/20 18:33 Sodium Chloride (Normal Saline) 1,000 mls @ 125 mls/hr IV STAT ONE Stop: 12/25/20 01:03 Labs: Laboratory Tests 12/24/20 Range/Units 16:20 WBC 6.28 (4.0-11.0) K/uL RBC 4.64 (4.30-5.90) M/uL Hgb 14.0 (12.0-16.0) g/dL Hct 41.9 (36.0-46.0) % MCV 90.3 (80.0-98.0) fL MCH 30.2 (27.0-32.0) pg MCHC 33.4 (31.0-37.0) g/dL RDW Std Deviation 42.8 (28.0-62.0) fl RDW Coeff of Crys 13 (11.0-15.0) % Plt Count 302 (150-400) K/uL MPV 9.20 (7.40-12.00) fL Neut % (Auto) 63.4 (48.0-80.0) % Lymph % (Auto) 28.5 (16.0-40.0) % [place] % (Auto) 5.9 (0.0-15.0) % Eos % (Auto) 1.6 (0.0-7.0) % Baso % (Auto) 0.6 (0.0-1.5) % Neut # (Auto) 4.0 (1.4-5.7) K/uL Lymph # (Auto) 1.8 (0.6-2.4) K/uL [place] # (Auto) 0.4 (0.0-0.8) K/uL Eos # (Auto) 0.1 (0.0-0.7) K/uL Baso # (Auto) 0.0 (0.0-0.1) K/uL Nucleated RBC % 0.0 /100WBC Nucleated RBCs # 0 K/uL Meds: Medications Generic Name Dose Route Start Last Admin Trade Name Freq PRN Reason Stop Dose Admin Vancomycin HCl 1 gm/ Sodium 250 mls @ 166 mls/hr 12/24/20 17:03 Chloride IV 12/24/20 18:33 ONETIME ONE Sodium Chloride 1,000 mls @ 125 mls/hr 12/24/20 17:04 Normal Saline IV 12/25/20 01:03 STAT ONE Departure - Departure Time of Disposition: 17:09 Disposition: Refer to Observation Clinical Impression: Lymphangitis - Discharge Information Referrals: PCP,Unknown [Primary Care Provider] - Forms: ED Department Discharge Sepsis Event Note (ED) - Evaluation Sepsis Screening Result: No Definite Risk - Focused Exam Vital Signs: Vital Signs Temp Pulse Resp BP Pulse Ox 12/24/20 17:02 84 18 128/72 98 12/24/20 15:45 97.3 F 82 118/70 94 L - My Orders Last 24 Hours: My Active Orders 12/24/20 15:55 Blood Culture x2 Reflex Set [OM.PC] Stat 12/24/20 16:20 COMPREHENSIVE METABOLIC PN,CMP [CHEM] Stat CULTURE BLOOD [BC] Stat LACTATE SEPSIS W/ REFLEX [CHEM] Stat 12/24/20 16:25 CULTURE BLOOD [BC] Stat 12/24/20 16:53 CORONAVIRUS COVID-19 JESSIE [MOLEC] Stat 12/24/20 17:02 HCG QUALITATIVE,URINE [URCHEM] Stat UA RFX DICK AND CULT IF INDIC [URIN] Stat 12/24/20 17:03 Admission Status [Patient Status] [ADT] Stat Vancomycin 1 gm Sodium Chloride 0.9% [Normal Saline (AdvBag)] 250 ml IV ONETIME 12/24/20 17:04 Sodium Chloride 0.9% [Normal Saline] 1,000 ml IV STAT - Assessment/Plan Last 24 Hours: My Active Orders 12/24/20 15:55 Blood Culture x2 Reflex Set [OM.PC] Stat 12/24/20 16:20 COMPREHENSIVE METABOLIC PN,CMP [CHEM] Stat CULTURE BLOOD [BC] Stat LACTATE SEPSIS W/ REFLEX [CHEM] Stat 12/24/20 16:25 CULTURE BLOOD [BC] Stat 12/24/20 16:53 CORONAVIRUS COVID-19 JESSIE [MOLEC] Stat 12/24/20 17:02 HCG QUALITATIVE,URINE [URCHEM] Stat UA RFX DICK AND CULT IF INDIC [URIN] Stat 12/24/20 17:03 Admission Status [Patient Status] [ADT] Stat Vancomycin 1 gm Sodium Chloride 0.9% [Normal Saline (AdvBag)] 250 ml IV ONETIME 12/24/20 17:04 Sodium Chloride 0.9% [Normal Saline] 1,000 ml IV STAT
--- NOTE | 2020-12-24 16:59 | CR ---
Indication: Circular lesion on the fat pad of the thumb Technique: Two views left hand Comparison: None Findings: Bones: Alignment is normal. No fractures or bone lesions. Joint spaces: Unremarkable. Soft tissues: Unremarkable. No radiopaque foreign body. Impression: Negative. Dictated by Lizette Frankel MD @ 12/24/2020 4:58:[address] Lizette Frankel @ Dec 24 2020 4:58PM
[2020-12-24] MEDS ORDERED: Sodium Chloride 0.9% 1,000 ML IV ONE (17:04)
[2020-12-24 17:25] LABS: POTASSIUM,K 4.5 mmol/L (3.5-5.1)
[2020-12-24] MEDS ORDERED: diphenhydrAMINE 50 MG/ML SDV IVPUSH ONE (18:05)
[2020-12-24] MEDS ORDERED: SODIUM CHLORIDE 0.9% IVPUSH SCH (22:15)
[2020-12-24] MEDS ORDERED: DAPTOMYCIN IVPUSH SCH (22:15)
--- NOTE | 2020-12-24 23:00 | PCM.HP.2 ---
H&P History of Present Illness - General Date of Service: 12/24/20 Admit Problem/Dx: Admission Diagnosis/Problem Admission Diagnosis/Problem Lymphangitis - History of Present Illness Initial Comments - Free Text/Narative: 30 yo female who presents with rash on left hand and arm. She stated it started four days ago as a red dot on her palm that kept on getting larger. The swelling extending to the metacarpal of her thumb. Last night the red bump scraped open but there was no drainage and it is now has scab. Today it started streaking up her arm. She was given Rocephin in the walking in clinic. The streaking increased by an inch so she reported to the ED. The ED gave vancomycin which caused her head to itch so the infusion was stopped. 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 Musculoskeletal History: Reports: None Neurological History: Reports: None Psychiatric History: Reports: None Endocrine/Metabolic History: Reports: None Insulin Pump Model and Sales Professional: None Hematologic History: Reports: None Immunologic History: Reports: None Oncologic (Cancer) History: Reports: None Dermatologic History: Reports: None - Infectious Disease History Infectious Disease History: Reports: Chicken Pox, Novel Coronavirus - Past Surgical History Head Surgeries/Procedures: Reports: None HEENT Surgical History: Reports: Naso-Sinus Surgery, Other (See Below) Other HEENT Surgeries/Procedures: Hx of Deviated Septum - Surgery June 2008 Social & Family History - Family History Family Medical History: No Pertinent Family History Oncologic: Reports: Other (See Below) Other Oncologic Family History: Mother had cancer - not sure where - Tobacco Use Tobacco Use Status *Q: Never Tobacco User Second Hand Smoke Exposure: No - Caffeine Use Caffeine Use: Reports: Coffee, Energy Drinks - Recreational Drug Use Recreational Drug Use: No H&P Review of Systems - Review of Systems: Review Of Systems: Comprehensive ROS is negative, except as noted in HPI. Exam - Exam Exam: See Below - Vital Signs Vital Signs: Last Vital Signs Temp 36.6 C 12/24/20 19:06 Pulse 84 12/24/20 19:06 Resp 18 12/24/20 19:06 BP 131/72 12/24/20 19:06 Pulse Ox 99 12/24/20 19:06 Weight: 80.24 kg - Exam General: Alert, Oriented HEENT: Mucosa Moist & [place] Neck: Supple Lungs: Clear to Auscultation, Normal Respiratory Effort Cardiovascular: Regular Rate, Regular Rhythm GI/Abdominal Exam: Normal Bowel Sounds, Soft, Non-Tender Extremities: Non-Tender, No Pedal Edema, Other (no axilarry lymphadenopathy). No: Joint Swelling Skin: Rash (2-3mm scab over palm of left hand, edema over thumb metacarpal, red streaking just above aticubital fossa.) - Patient Data Lab Results Last 24 hrs: Laboratory Results - last 24 hr 12/24/20 12/24/20 12/24/20 Range/Units 16:20 16:20 16:20 WBC 6.28 (4.0-11.0) K/uL RBC 4.64 (4.30-5.90) M/uL Hgb 14.0 (12.0-16.0) g/dL Hct 41.9 (36.0-46.0) % MCV 90.3 (80.0-98.0) fL MCH 30.2 (27.0-32.0) pg MCHC 33.4 (31.0-37.0) g/dL RDW Std Deviation 42.8 (28.0-62.0) fl RDW Coeff of Crys 13 (11.0-15.0) % Plt Count 302 (150-400) K/uL MPV 9.20 (7.40-12.00) fL Neut % (Auto) 63.4 (48.0-80.0) % Lymph % (Auto) 28.5 (16.0-40.0) % [place] % (Auto) 5.9 (0.0-15.0) % Eos % (Auto) 1.6 (0.0-7.0) % Baso % (Auto) 0.6 (0.0-1.5) % Neut # (Auto) 4.0 (1.4-5.7) K/uL Lymph # (Auto) 1.8 (0.6-2.4) K/uL [place] # (Auto) 0.4 (0.0-0.8) K/uL Eos # (Auto) 0.1 (0.0-0.7) K/uL Baso # (Auto) 0.0 (0.0-0.1) K/uL Nucleated RBC % 0.0 /100WBC Nucleated RBCs # 0 K/uL Sodium 141 (136-145) mmol/L Potassium 4.5 (3.5-5.1) mmol/L Chloride 104 (98-107) mmol/L Carbon Dioxide 27.0 (21.0-32.0) mmol/L BUN 15 (7.0-18.0) mg/dL Creatinine 1.1 H (0.6-1.0) mg/dL Est Cr Clr Drug Dosing 74.04 mL/min Estimated GFR (MDRD) 59.1 ml/min Glucose 95 (74-106) mg/dL Lactic Acid 1.1 (0.4-2.0) mmol/L Calcium 8.7 (8.5-10.1) mg/dL Total Bilirubin 0.2 (0.2-1.0) mg/dL AST 18 (15-37) IU/L ALT 23 (14-63) IU/L Alkaline Phosphatase 82 (46-116) U/L Total Protein 7.7 (6.4-8.2) g/dL Albumin 4.2 (3.4-5.0) g/dL Globulin 3.5 (2.6-4.0) g/dL Albumin/Globulin Ratio 1.2 (0.9-1.6) Urine Color Urine Appearance Urine pH (5.0-8.0) Ur Specific [place] (1.001-1.035) Urine Protein (NEGATIVE) mg/dL Urine Glucose (UA) (NEGATIVE) mg/dL Urine Ketones (NEGATIVE) mg/dL Urine Occult Blood (NEGATIVE) Urine Nitrite (NEGATIVE) Urine Bilirubin (NEGATIVE) Urine Urobilinogen (<2.0) EU/dL Ur Leukocyte Esterase (NEGATIVE) Urine HCG, Qual (NEGATIVE) SARS-CoV-2 RNA (JESSIE) (NEGATIVE) 12/24/20 12/24/20 12/24/20 Range/Units 16:53 17:09 17:09 WBC (4.0-11.0) K/uL RBC (4.30-5.90) M/uL Hgb (12.0-16.0) g/dL Hct (36.0-46.0) % MCV (80.0-98.0) fL MCH (27.0-32.0) pg MCHC (31.0-37.0) g/dL RDW Std Deviation (28.0-62.0) fl RDW Coeff of Crys (11.0-15.0) % Plt Count (150-400) K/uL MPV (7.40-12.00) fL Neut % (Auto) (48.0-80.0) % Lymph % (Auto) (16.0-40.0) % [place] % (Auto) (0.0-15.0) % Eos % (Auto) (0.0-7.0) % Baso % (Auto) (0.0-1.5) % Neut # (Auto) (1.4-5.7) K/uL Lymph # (Auto) (0.6-2.4) K/uL [place] # (Auto) (0.0-0.8) K/uL Eos # (Auto) (0.0-0.7) K/uL Baso # (Auto) (0.0-0.1) K/uL Nucleated RBC % /100WBC Nucleated RBCs # K/uL Sodium (136-145) mmol/L Potassium (3.5-5.1) mmol/L Chloride (98-107) mmol/L Carbon Dioxide (21.0-32.0) mmol/L BUN (7.0-18.0) mg/dL Creatinine (0.6-1.0) mg/dL Est Cr Clr Drug Dosing mL/min Estimated GFR (MDRD) ml/min Glucose (74-106) mg/dL Lactic Acid (0.4-2.0) mmol/L Calcium (8.5-10.1) mg/dL Total Bilirubin (0.2-1.0) mg/dL AST (15-37) IU/L ALT (14-63) IU/L Alkaline Phosphatase (46-116) U/L Total Protein (6.4-8.2) g/dL Albumin (3.4-5.0) g/dL Globulin (2.6-4.0) g/dL Albumin/Globulin Ratio (0.9-1.6) Urine Color YELLOW Urine Appearance CLEAR Urine pH 7.0 (5.0-8.0) Ur Specific [place] 1.015 (1.001-1.035) Urine Protein NEGATIVE (NEGATIVE) mg/dL Urine Glucose (UA) NEGATIVE (NEGATIVE) mg/dL Urine Ketones NEGATIVE (NEGATIVE) mg/dL Urine Occult Blood NEGATIVE (NEGATIVE) Urine Nitrite NEGATIVE (NEGATIVE) Urine Bilirubin NEGATIVE (NEGATIVE) Urine Urobilinogen 0.2 (<2.0) EU/dL Ur Leukocyte Esterase NEGATIVE (NEGATIVE) Urine HCG, Qual NEGATIVE (NEGATIVE) SARS-CoV-2 RNA (JESSIE) NEGATIVE (NEGATIVE) Result Diagrams: 12/26/20 05:03 12/26/20 05:03 Sepsis Event Note - Evaluation Sepsis Screening Result: No Definite Risk - Focused Exam Vital Signs: Vital Signs Temp Pulse Resp BP Pulse Ox 12/24/20 19:06 36.6 C 84 18 131/72 99 12/24/20 18:31 36.5 C 92 18 121/72 99 12/24/20 17:02 84 18 128/72 98 12/24/20 15:45 36.3 C 82 118/70 94 L Problem List Initiated/Reviewed/Updated: Yes Orders Last 24hrs: Active Orders 24 hr Category Date Time Status Admission Status [Patient Status] [ADT] Stat ADT 12/24/20 17:03 Active Regular Diet [DIET] Diet 12/25/20 Breakfast Active CULTURE BLOOD [BC] Stat Lab 12/24/20 16:20 Received CULTURE BLOOD [BC] Stat Lab 12/24/20 16:25 Received DAPTOmycin [Cubicin] 400 mg Med 12/24/20 22:15 Active Sodium Chloride 0.9% [Normal Saline] 20 ml IVPUSH Q24H Sodium Chloride 0.9% [Normal Saline] 1,000 ml Med 12/24/20 17:04 Active IV STAT Blood Culture x2 Reflex Set [OM.PC] Stat Oth 12/24/20 15:55 Ordered Medication Orders Sodium Chloride (Normal Saline) 1,000 mls @ 125 mls/hr IV STAT ONE Stop: 12/25/20 01:03 Last Admin: 12/24/20 17:25 Dose: 125 mls/hr Documented by: ZOFIA Daptomycin 400 mg/ Sodium (Chloride) 20 mls @ 600 mls/hr IVPUSH Q24H JANENE Assessment/Plan Comment:: 30 yo female admitted for left arm cellulitis. We will treat with daptomycin.
[2020-12-24] MEDS: oxyCODONE 5 MG Tab PO PRN (23:55)
[2020-12-25 06:37] LABS: CARBON DIOXIDE,CO2 26.2 mmol/L (21.0-32.0)
[2020-12-25] MEDS ORDERED: DAPTOmycin 400 MG in Sodium Chloride 0.9% 8 ML IVPUSH SCH ×2 (07:42→22:00)
[2020-12-25] MEDS: Ibuprofen 400 MG Tab PO PRN (10:44)
[2020-12-25] MEDS: oxyCODONE 5 MG Tab PO PRN ×2 (14:58→22:17)
[2020-12-25] MEDS: Ondansetron 4 MG/2 ML SDV IVPUSH PRN (14:59)
[2020-12-25] MEDS ORDERED: Sodium Chloride 0.9% 2.5 ML Syringe FLUSH PRN (15:48)
--- NOTE | 2020-12-25 16:47 | PCM.PN ---
- General Info Date of Service: 12/25/20 Admission Dx/Problem (Free Text): Admission Diagnosis/Problem Admission Diagnosis/Problem cellulitis vs lymphangitis Subjective Update: 30-year-old admitted with rash on left hand/arm, lesion had started as red dot, expanded and extended into the metacarpal and thumb region. Patient was started on vancomycin did not tolerate well. Therefore, vancomycin was discontinued, patient continued on daptomycin has been responding well, remains afebrile, states that pain is somewhat improved and erythema has resolved. Functional Status: Reports: Pain Controlled, Tolerating Diet, Ambulating, Urinating - Review of Systems General: Reports: No Symptoms HEENT: Reports: No Symptoms Pulmonary: Reports: No Symptoms Cardiovascular: Reports: No Symptoms Gastrointestinal: Reports: No Symptoms Genitourinary: Reports: No Symptoms Musculoskeletal: Reports: Shoulder Pain, Arm Pain, Hand Pain Skin: Reports: Other (Lesion noted on palmar aspect of hand, with overlying eschar, with slight fluid-filled peripheral region. No fluctuance. Erythema extending up arm has resolved.) Neurological: Reports: No Symptoms Psychiatric: Reports: No Symptoms - Patient Data Vitals - Most Recent: Last Vital Signs Temp 97.1 F 12/25/20 15:21 Pulse 60 12/25/20 15: Resp 22 H 12/25/20 15:21 BP 113/68 12/25/20 15:21 Pulse Ox 98 12/25/20 15:21 Weight - Most Recent: 176 lb 14.4 oz I&O - Last 24 Hours: Intake & Output 12/25/20 12/25/20 12/25/20 06:59 14:59 22:59 Intake Total 400 600 Balance 400 600 Lab Results Last 24 Hours: Laboratory Results - last 24 hr 12/24/20 12/24/20 12/24/20 Range/Units 16:20 16:20 16:20 WBC 6.28 (4.0-11.0) K/uL RBC 4.64 (4.30-5.90) M/uL Hgb 14.0 (12.0-16.0) g/dL Hct 41.9 (36.0-46.0) % MCV 90.3 (80.0-98.0) fL MCH 30.2 (27.0-32.0) pg MCHC 33.4 (31.0-37.0) g/dL RDW Std Deviation 42.8 (28.0-62.0) fl RDW Coeff of Crys 13 (11.0-15.0) % Plt Count 302 (150-400) K/uL MPV 9.20 (7.40-12.00) fL Neut % (Auto) 63.4 (48.0-80.0) % Lymph % (Auto) 28.5 (16.0-40.0) % Ida % (Auto) 5.9 (0.0-15.0) % Eos % (Auto) 1.6 (0.0-7.0) % Baso % (Auto) 0.6 (0.0-1.5) % Neut # (Auto) 4.0 (1.4-5.7) K/uL Lymph # (Auto) 1.8 (0.6-2.4) K/uL Ida # (Auto) 0.4 (0.0-0.8) K/uL Eos # (Auto) 0.1 (0.0-0.7) K/uL Baso # (Auto) 0.0 (0.0-0.1) K/uL Nucleated RBC % 0.0 /100WBC Nucleated RBCs # 0 K/uL Sodium 141 (136-145) mmol/L Potassium 4.5 (3.5-5.1) mmol/L Chloride 104 (98-107) mmol/L Carbon Dioxide 27.0 (21.0-32.0) mmol/L BUN 15 (7.0-18.0) mg/dL Creatinine 1.1 H (0.6-1.0) mg/dL Est Cr Clr Drug Dosing 74.04 mL/min Estimated GFR (MDRD) 59.1 ml/min Glucose 95 (74-106) mg/dL Lactic Acid 1.1 (0.4-2.0) mmol/L Calcium 8.7 (8.5-10.1) mg/dL Total Bilirubin 0.2 (0.2-1.0) mg/dL AST 18 (15-37) IU/L ALT 23 (14-63) IU/L Alkaline Phosphatase 82 (46-116) U/L Total Protein 7.7 (6.4-8.2) g/dL Albumin 4.2 (3.4-5.0) g/dL Globulin 3.5 (2.6-4.0) g/dL Albumin/Globulin Ratio 1.2 (0.9-1.6) Urine Color Urine Appearance Urine pH (5.0-8.0) Ur Specific [place] (1.001-1.035) Urine Protein (NEGATIVE) mg/dL Urine Glucose (UA) (NEGATIVE) mg/dL Urine Ketones (NEGATIVE) mg/dL Urine Occult Blood (NEGATIVE) Urine Nitrite (NEGATIVE) Urine Bilirubin (NEGATIVE) Urine Urobilinogen (<2.0) EU/dL Ur Leukocyte Esterase (NEGATIVE) Urine HCG, Qual (NEGATIVE) SARS-CoV-2 RNA (JESSIE) (NEGATIVE) 12/24/20 12/24/20 12/24/20 Range/Units 16:53 17:09 17:09 WBC (4.0-11.0) K/uL RBC (4.30-5.90) M/uL Hgb (12.0-16.0) g/dL Hct (36.0-46.0) % MCV (80.0-98.0) fL MCH (27.0-32.0) pg MCHC (31.0-37.0) g/dL RDW Std Deviation (28.0-62.0) fl RDW Coeff of Crys (11.0-15.0) % Plt Count (150-400) K/uL MPV (7.40-12.00) fL Neut % (Auto) (48.0-80.0) % Lymph % (Auto) (16.0-40.0) % Ida % (Auto) (0.0-15.0) % Eos % (Auto) (0.0-7.0) % Baso % (Auto) (0.0-1.5) % Neut # (Auto) (1.4-5.7) K/uL Lymph # (Auto) (0.6-2.4) K/uL Ida # (Auto) (0.0-0.8) K/uL Eos # (Auto) (0.0-0.7) K/uL Baso # (Auto) (0.0-0.1) K/uL Nucleated RBC % /100WBC Nucleated RBCs # K/uL Sodium (136-145) mmol/L Potassium (3.5-5.1) mmol/L Chloride (98-107) mmol/L Carbon Dioxide (21.0-32.0) mmol/L BUN (7.0-18.0) mg/dL Creatinine (0.6-1.0) mg/dL Est Cr Clr Drug Dosing mL/min Estimated GFR (MDRD) ml/min Glucose (74-106) mg/dL Lactic Acid (0.4-2.0) mmol/L Calcium (8.5-10.1) mg/dL Total Bilirubin (0.2-1.0) mg/dL AST (15-37) IU/L ALT (14-63) IU/L Alkaline Phosphatase (46-116) U/L Total Protein (6.4-8.2) g/dL Albumin (3.4-5.0) g/dL Globulin (2.6-4.0) g/dL Albumin/Globulin Ratio (0.9-1.6) Urine Color YELLOW Urine Appearance CLEAR Urine pH 7.0 (5.0-8.0) Ur Specific [place] 1.015 (1.001-1.035) Urine Protein NEGATIVE (NEGATIVE) mg/dL Urine Glucose (UA) NEGATIVE (NEGATIVE) mg/dL Urine Ketones NEGATIVE (NEGATIVE) mg/dL Urine Occult Blood NEGATIVE (NEGATIVE) Urine Nitrite NEGATIVE (NEGATIVE) Urine Bilirubin NEGATIVE (NEGATIVE) Urine Urobilinogen 0.2 (<2.0) EU/dL Ur Leukocyte Esterase NEGATIVE (NEGATIVE) Urine HCG, Qual NEGATIVE (NEGATIVE) SARS-CoV-2 RNA (JESSIE) NEGATIVE (NEGATIVE) 12/25/20 12/25/20 Range/Units 05:30 05:30 WBC 6.66 (4.0-11.0) K/uL RBC 4.61 (4.30-5.90) M/uL Hgb 13.7 (12.0-16.0) g/dL Hct 41.6 (36.0-46.0) % MCV 90.2 (80.0-98.0) fL MCH 29.7 (27.0-32.0) pg MCHC 32.9 (31.0-37.0) g/dL RDW Std Deviation 43.0 (28.0-62.0) fl RDW Coeff of Crys 13 (11.0-15.0) % Plt Count 272 (150-400) K/uL MPV 9.40 (7.40-12.00) fL Neut % (Auto) 52.3 (48.0-80.0) % Lymph % (Auto) 37.7 (16.0-40.0) % [place]da % (Auto) 7.4 (0.0-15.0) % Eos % (Auto) 2.1 (0.0-7.0) % Baso % (Auto) 0.5 (0.0-1.5) % Neut # (Auto) 3.5 (1.4-5.7) K/uL Lymph # (Auto) 2.5 H (0.6-2.4) K/uL Ida # (Auto) 0.5 (0.0-0.8) K/uL Eos # (Auto) 0.1 (0.0-0.7) K/uL Baso # (Auto) 0.0 (0.0-0.1) K/uL Nucleated RBC % 0.0 /100WBC Nucleated RBCs # 0 K/uL Sodium 141 (136-145) mmol/L Potassium 4.0 (3.5-5.1) mmol/L Chloride 107 (98-107) mmol/L Carbon Dioxide 26.2 (21.0-32.0) mmol/L BUN 15 (7.0-18.0) mg/dL Creatinine 1.1 H (0.6-1.0) mg/dL Est Cr Clr Drug Dosing 74.04 mL/min Estimated GFR (MDRD) 59.1 ml/min Glucose 91 (74-106) mg/dL Lactic Acid (0.4-2.0) mmol/L Calcium 8.3 L (8.5-10.1) mg/dL Total Bilirubin (0.2-1.0) mg/dL AST (15-37) IU/L ALT (14-63) IU/L Alkaline Phosphatase (46-116) U/L Total Protein (6.4-8.2) g/dL Albumin (3.4-5.0) g/dL Globulin (2.6-4.0) g/dL Albumin/Globulin Ratio (0.9-1.6) Urine Color Urine Appearance Urine pH (5.0-8.0) Ur Specific [place] (1.001-1.035) Urine Protein (NEGATIVE) mg/dL Urine Glucose (UA) (NEGATIVE) mg/dL Urine Ketones (NEGATIVE) mg/dL Urine Occult Blood (NEGATIVE) Urine Nitrite (NEGATIVE) Urine Bilirubin (NEGATIVE) Urine Urobilinogen (<2.0) EU/dL Ur Leukocyte Esterase (NEGATIVE) Urine HCG, Qual (NEGATIVE) SARS-CoV-2 RNA (JESSIE) (NEGATIVE) Alex Results Last 24 Hours: Microbiology 12/24/20 16:25 Aerobic Blood Culture - Preliminary Blood - Venous - Lab Draw NO GROWTH AFTER 1 DAY Anaerobic Blood Culture - Preliminary NO GROWTH AFTER 1 DAY 12/24/20 16:20 Aerobic Blood Culture - Preliminary Blood - Venous NO GROWTH AFTER 1 DAY Anaerobic Blood Culture - Preliminary NO GROWTH AFTER 1 DAY Med Orders - Current: Current Medications Acetaminophen (Acetaminophen 325 Mg Tab) 650 mg PO Q4H PRN PRN Reason: Pain Daptomycin 400 mg/ Sodium (Chloride) 8 mls @ 240 mls/hr IVPUSH Q24H JANENE Ibuprofen (Ibuprofen 400 Mg Tab) 400 mg PO Q6H PRN PRN Reason: Pain Last Admin: 12/25/20 10:44 Dose: 400 mg Documented by: Ondansetron HCl (Ondansetron 4 Mg/2 Ml Sdv) 4 mg IVPUSH Q4H PRN PRN Reason: Nausea Last Admin: 12/25/20 14:59 Dose: 4 mg Documented by: Oxycodone HCl (Oxycodone 5 Mg Tab) 5 mg PO Q6H PRN PRN Reason: Pain Last Admin: 12/25/20 14:58 Dose: 5 mg Documented by: Sodium Chloride (Sodium Chloride 0.9% 2.5 Ml Syringe) 2.5 ml FLUSH ASDIRECTED PRN PRN Reason: Keep Vein Open Discontinued Medications Diphenhydramine HCl (Diphenhydramine 50 Mg/Ml Sdv) 50 mg IVPUSH ONETIME ONE Stop: 12/24/20 18:06 Last Admin: 12/24/20 18:19 Dose: 50 mg Documented by: Vancomycin HCl 1 gm/ Sodium (Chloride) 250 mls @ 166 mls/hr IV ONETIME ONE Stop: 12/24/20 18:33 Last Admin: 12/24/20 17:24 Dose: 166 mls/hr Documented by: Sodium Chloride (Normal Saline) 1,000 mls @ 125 mls/hr IV STAT ONE Stop: 12/25/20 01:03 Last Admin: 12/24/20 17:25 Dose: 125 mls/hr Documented by: Daptomycin 400 mg/ Sodium (Chloride) 20 mls @ 600 mls/hr IVPUSH Q24H [facility] Last Admin: 12/24/20 23:49 Dose: 600 mls/hr Documented by: Daptomycin 400 mg/ Sodium (Chloride) 8 mls @ 240 mls/hr IVPUSH Q24H [facility] - Exam General: Alert, Oriented, Cooperative HEENT: Pupils Equal, Pupils Reactive, EOMI Neck: No JVD. No: Lymphadenopathy Lungs: Clear to Auscultation, Normal Respiratory Effort Cardiovascular: Regular Rate, Regular Rhythm, No Murmurs GI/Abdominal Exam: Normal Bowel Sounds, Soft, Non-Tender Extremities: Normal Inspection, Normal Range of Motion, No Pedal Edema, Normal Capillary Refill Peripheral Pulses: 2+: Carotid (L), Carotid (R), Dorsalis Pedis (L), Dorsalis Pedis (R) Skin: Warm, Dry, Intact Neurological: No New Focal Deficit Psy/Mental Status: Alert, Normal Affect, Normal Mood - Patient Data Lab Results Last 24 hrs: Laboratory Results - last 24 hr 12/24/20 12/24/20 12/24/20 Range/Units 16:20 16:20 16:20 WBC 6.28 (4.0-11.0) K/uL RBC 4.64 (4.30-5.90) M/uL Hgb 14.0 (12.0-16.0) g/dL Hct 41.9 (36.0-46.0) % MCV 90.3 (80.0-98.0) fL MCH 30.2 (27.0-32.0) pg MCHC 33.4 (31.0-37.0) g/dL RDW Std Deviation 42.8 (28.0-62.0) fl RDW Coeff of Crys 13 (11.0-15.0) % Plt Count 302 (150-400) K/uL MPV 9.20 (7.40-12.00) fL Neut % (Auto) 63.4 (48.0-80.0) % Lymph % (Auto) 28.5 (16.0-40.0) % Ida % (Auto) 5.9 (0.0-15.0) % Eos % (Auto) 1.6 (0.0-7.0) % Baso % (Auto) 0.6 (0.0-1.5) % Neut # (Auto) 4.0 (1.4-5.7) K/uL Lymph # (Auto) 1.8 (0.6-2.4) K/uL Ida # (Auto) 0.4 (0.0-0.8) K/uL Eos # (Auto) 0.1 (0.0-0.7) K/uL Baso # (Auto) 0.0 (0.0-0.1) K/uL Nucleated RBC % 0.0 /100WBC Nucleated RBCs # 0 K/uL Sodium 141 (136-145) mmol/L Potassium 4.5 (3.5-5.1) mmol/L Chloride 104 (98-107) mmol/L Carbon Dioxide 27.0 (21.0-32.0) mmol/L BUN 15 (7.0-18.0) mg/dL Creatinine 1.1 H (0.6-1.0) mg/dL Est Cr Clr Drug Dosing 74.04 mL/min Estimated GFR (MDRD) 59.1 ml/min Glucose 95 (74-106) mg/dL Lactic Acid 1.1 (0.4-2.0) mmol/L Calcium 8.7 (8.5-10.1) mg/dL Total Bilirubin 0.2 (0.2-1.0) mg/dL AST 18 (15-37) IU/L ALT 23 (14-63) IU/L Alkaline Phosphatase 82 (46-116) U/L Total Protein 7.7 (6.4-8.2) g/dL Albumin 4.2 (3.4-5.0) g/dL Globulin 3.5 (2.6-4.0) g/dL Albumin/Globulin Ratio 1.2 (0.9-1.6) Urine Color Urine Appearance Urine pH (5.0-8.0) Ur Specific [place] (1.001-1.035) Urine Protein (NEGATIVE) mg/dL Urine Glucose (UA) (NEGATIVE) mg/dL Urine Ketones (NEGATIVE) mg/dL Urine Occult Blood (NEGATIVE) Urine Nitrite (NEGATIVE) Urine Bilirubin (NEGATIVE) Urine Urobilinogen (<2.0) EU/dL Ur Leukocyte Esterase (NEGATIVE) Urine HCG, Qual (NEGATIVE) SARS-CoV-2 RNA (JESSIE) (NEGATIVE) 12/24/20 12/24/20 12/24/20 Range/Units 16:53 17:09 17:09 WBC (4.0-11.0) K/uL RBC (4.30-5.90) M/uL Hgb (12.0-16.0) g/dL Hct (36.0-46.0) % MCV (80.0-98.0) fL MCH (27.0-32.0) pg MCHC (31.0-37.0) g/dL RDW Std Deviation (28.0-62.0) fl RDW Coeff of Crys (11.0-15.0) % Plt Count (150-400) K/uL MPV (7.40-12.00) fL Neut % (Auto) (48.0-80.0) % Lymph % (Auto) (16.0-40.0) % Ida % (Auto) (0.0-15.0) % Eos % (Auto) (0.0-7.0) % Baso % (Auto) (0.0-1.5) % Neut # (Auto) (1.4-5.7) K/uL Lymph # (Auto) (0.6-2.4) K/uL Ida # (Auto) (0.0-0.8) K/uL Eos # (Auto) (0.0-0.7) K/uL Baso # (Auto) (0.0-0.1) K/uL Nucleated RBC % /100WBC Nucleated RBCs # K/uL Sodium (136-145) mmol/L Potassium (3.5-5.1) mmol/L Chloride (98-107) mmol/L Carbon Dioxide (21.0-32.0) mmol/L BUN (7.0-18.0) mg/dL Creatinine (0.6-1.0) mg/dL Est Cr Clr Drug Dosing mL/min Estimated GFR (MDRD) ml/min Glucose (74-106) mg/dL Lactic Acid (0.4-2.0) mmol/L Calcium (8.5-10.1) mg/dL Total Bilirubin (0.2-1.0) mg/dL AST (15-37) IU/L ALT (14-63) IU/L Alkaline Phosphatase (46-116) U/L Total Protein (6.4-8.2) g/dL Albumin (3.4-5.0) g/dL Globulin (2.6-4.0) g/dL Albumin/Globulin Ratio (0.9-1.6) Urine Color YELLOW Urine Appearance CLEAR Urine pH 7.0 (5.0-8.0) Ur Specific [place] 1.015 (1.001-1.035) Urine Protein NEGATIVE (NEGATIVE) mg/dL Urine Glucose (UA) NEGATIVE (NEGATIVE) mg/dL Urine Ketones NEGATIVE (NEGATIVE) mg/dL Urine Occult Blood NEGATIVE (NEGATIVE) Urine Nitrite NEGATIVE (NEGATIVE) Urine Bilirubin NEGATIVE (NEGATIVE) Urine Urobilinogen 0.2 (<2.0) EU/dL Ur Leukocyte Esterase NEGATIVE (NEGATIVE) Urine HCG, Qual NEGATIVE (NEGATIVE) SARS-CoV-2 RNA (JESSIE) NEGATIVE (NEGATIVE) 12/25/20 12/25/20 Range/Units 05:30 05:30 WBC 6.66 (4.0-11.0) K/uL RBC 4.61 (4.30-5.90) M/uL Hgb 13.7 (12.0-16.0) g/dL Hct 41.6 (36.0-46.0) % MCV 90.2 (80.0-98.0) fL MCH 29.7 (27.0-32.0) pg MCHC 32.9 (31.0-37.0) g/dL RDW Std Deviation 43.0 (28.0-62.0) fl RDW Coeff of Crys 13 (11.0-15.0) % Plt Count 272 (150-400) K/uL MPV 9.40 (7.40-12.00) fL Neut % (Auto) 52.3 (48.0-80.0) % Lymph % (Auto) 37.7 (16.0-40.0) % Ida % (Auto) 7.4 (0.0-15.0) % Eos % (Auto) 2.1 (0.0-7.0) % Baso % (Auto) 0.5 (0.0-1.5) % Neut # (Auto) 3.5 (1.4-5.7) K/uL Lymph # (Auto) 2.5 H (0.6-2.4) K/uL Ida # (Auto) 0.5 (0.0-0.8) K/uL Eos # (Auto) 0.1 (0.0-0.7) K/uL Baso # (Auto) 0.0 (0.0-0.1) K/uL Nucleated RBC % 0.0 /100WBC Nucleated RBCs # 0 K/uL Sodium 141 (136-145) mmol/L Potassium 4.0 (3.5-5.1) mmol/L Chloride 107 (98-107) mmol/L Carbon Dioxide 26.2 (21.0-32.0) mmol/L BUN 15 (7.0-18.0) mg/dL Creatinine 1.1 H (0.6-1.0) mg/dL Est Cr Clr Drug Dosing 74.04 mL/min Estimated GFR (MDRD) 59.1 ml/min Glucose 91 (74-106) mg/dL Lactic Acid (0.4-2.0) mmol/L Calcium 8.3 L (8.5-10.1) mg/dL Total Bilirubin (0.2-1.0) mg/dL AST (15-37) IU/L ALT (14-63) IU/L Alkaline Phosphatase (46-116) U/L Total Protein (6.4-8.2) g/dL Albumin (3.4-5.0) g/dL Globulin (2.6-4.0) g/dL Albumin/Globulin Ratio (0.9-1.6) Urine Color Urine Appearance Urine pH (5.0-8.0) Ur Specific [place] (1.001-1.035) Urine Protein (NEGATIVE) mg/dL Urine Glucose (UA) (NEGATIVE) mg/dL Urine Ketones (NEGATIVE) mg/dL Urine Occult Blood (NEGATIVE) Urine Nitrite (NEGATIVE) Urine Bilirubin (NEGATIVE) Urine Urobilinogen (<2.0) EU/dL Ur Leukocyte Esterase (NEGATIVE) Urine HCG, Qual (NEGATIVE) SARS-CoV-2 RNA (JESSIE) (NEGATIVE) Result Diagrams: 12/25/20 05:30 12/25/20 05:30 Alex Results Last 24 hrs: Microbiology 12/24/20 16:25 Aerobic Blood Culture - Preliminary Blood - Venous - Lab Draw NO GROWTH AFTER 1 DAY Anaerobic Blood Culture - Preliminary NO GROWTH AFTER 1 DAY 12/24/20 16:20 Aerobic Blood Culture - Preliminary Blood - Venous NO GROWTH AFTER 1 DAY Anaerobic Blood Culture - Preliminary NO GROWTH AFTER 1 DAY Sepsis Event Note - Evaluation Sepsis Screening Result: No Definite Risk - Focused Exam Vital Signs: Vital Signs Temp Pulse Resp BP Pulse Ox 12/25/20 15:21 97.1 F 60 22 H 113/68 98 12/25/20 12:00 97.6 F 72 72 H 116/74 98 12/25/20 08:20 96.5 F L 90 18 110/75 99 12/25/20 05:00 98.0 F 57 L 18 104/58 L 98 - Problem List & Annotations (1) Lymphangitis SNOMED Code(s): 3504873 Code(s): I89.1 - LYMPHANGITIS Status: Acute Current Visit: Yes (2) Cellulitis SNOMED Code(s): 429154213 Code(s): L03.90 - CELLULITIS, UNSPECIFIED Status: Acute Current Visit: No - Problem List Review Problem List Initiated/Reviewed/Updated: Yes - Plan Plan:: 30-year-old female admitted for possible left arm cellulitis versus lymphangitis. 1. Cellulitis: Improved; no leukocytosis, afebrile, patient has responded to daptomycin, however patient states that she has associated arm pain somewhat controlled with ibuprofen, Tylenol and Oxycodone 5 milligrams p.o. Cultures pending. Continue to monitor may consider lancing lesion to see if the provides her any relief or provides any discharge to further culture and alter antibiotics. CODE STATUS: Full code
[2020-12-25] MEDS: Acetaminophen 325 MG Tab PO PRN (20:35)
[2020-12-26] MEDS: oxyCODONE 5 MG Tab PO PRN (05:11)
[2020-12-26 05:51] LABS: BLOOD UREA NITROGEN,BUN 15 mg/dL (7.0-18.0); CARBON DIOXIDE,CO2 25.9 mmol/L (21.0-32.0); CHLORIDE,CL 104 mmol/L (98-107); GLUCOSE RANDOM 93 mg/dL (74-106); SODIUM,NA 140 mmol/L (136-145)
[2020-12-26 07:05] VITALS: BP 126/82; PULSE 71
[2020-12-26] MEDS: Acetaminophen 325 MG Tab PO PRN (07:23)
[2020-12-26] MEDS: Ondansetron 4 MG/2 ML SDV IVPUSH PRN (08:40)
[2020-12-26] MEDS: Ibuprofen 400 MG Tab PO PRN (08:41)
--- NOTE | 2020-12-26 11:15 | PCM.DCSUM1 ---
Discharge Summary - Discharge Data Discharge Date: 12/26/20 Discharge Disposition: Home, Self-Care 01 Condition: Stable - Referral to Home Health Primary Care Physician: PCP Unknown - Patient Summary/Data Hospital Course: 30 yo female who was admitted for left hand cellulitis. She presented with edema and erythema over her metacarpal of her thumb with a streak up her arm. She was initally given Rocephin in clinic then returned to the ER several hours later due to increase in the streaking. She was started on VAncomycn but did not tolerated it due to itching of the head. She was given Daptomycin and had improvement in her edema and swelling. She had a small superficiall abscess on the palm of her that spontaneously opened and had minimal drainage, This was cultured and the results are pending. She was discharged home on Bactrim DS BID for five more days. She is to follow up with [facility]. - Patient Instructions Diet: Regular Diet as Tolerated Activity: As Tolerated Notify Provider of: Fever, Increased Pain, Swelling and Redness, Drainage - Discharge Plan Prescriptions/Med Rec: Sulfamethoxazole/Trimethoprim [Bactrim Ds Tablet] 1 each PO BID #10 tablet Home Medications: Home Meds Sulfamethoxazole/Trimethoprim [Bactrim Ds Tablet] 1 each PO BID #10 tablet 12/26/20 [Rx] Patient Handouts: Lymphangitis, Adult, Sulfamethoxazole; Trimethoprim, [id number] tablets Referrals: Gogo Layne MD [Physician] - 01/01/21 3:00 pm - Discharge Summary/Plan Comment DC Time >30 min.: No - Patient Data Vitals - Most Recent: Last Vital Signs Temp 36.2 C 12/26/20 07:03 Pulse 71 12/26/20 07:03 Resp 16 12/26/20 07:03 BP 126/82 12/26/20 07:03 Pulse Ox 97 12/26/20 07:03 Weight - Most Recent: 80.24 kg I&O - Last 24 hours: Intake & Output 12/25/20 12/26/20 12/26/20 22:59 06:59 14:59 Intake Total 600 700 Output Total 1200 Balance 600 -500 Lab Results - Last 24 hrs: Laboratory Results - last 24 hr 12/26/20 12/26/20 Range/Units 05:03 05:03 WBC 5.94 (4.0-11.0) K/uL RBC 4.65 (4.30-5.90) M/uL Hgb 13.9 (12.0-16.0) g/dL Hct 41.7 (36.0-46.0) % MCV 89.7 (80.0-98.0) fL MCH 29.9 (27.0-32.0) pg MCHC 33.3 (31.0-37.0) g/dL RDW Std Deviation 42.1 (28.0-62.0) fl RDW Coeff of Crys 13 (11.0-15.0) % Plt Count 253 (150-400) K/uL MPV 9.20 (7.40-12.00) fL Neut % (Auto) 53.6 (48.0-80.0) % Lymph % (Auto) 38.6 (16.0-40.0) % [place] % (Auto) 5.4 (0.0-15.0) % Eos % (Auto) 1.9 (0.0-7.0) % Baso % (Auto) 0.5 (0.0-1.5) % Neut # (Auto) 3.2 (1.4-5.7) K/uL Lymph # (Auto) 2.3 (0.6-2.4) K/uL [place] # (Auto) 0.3 (0.0-0.8) K/uL Eos # (Auto) 0.1 (0.0-0.7) K/uL Baso # (Auto) 0.0 (0.0-0.1) K/uL Nucleated RBC % 0.0 /100WBC Nucleated RBCs # 0 K/uL Sodium 140 (136-145) mmol/L Potassium 4.0 (3.5-5.1) mmol/L Chloride 104 (98-107) mmol/L Carbon Dioxide 25.9 (21.0-32.0) mmol/L BUN 15 (7.0-18.0) mg/dL Creatinine 1.0 (0.6-1.0) mg/dL Est Cr Clr Drug Dosing 81.45 mL/min Estimated GFR (MDRD) > 60.0 ml/min Glucose 93 (74-106) mg/dL Calcium 8.5 (8.5-10.1) mg/dL DICK Results - Last 24 hrs: Microbiology 12/24/20 16:25 Aerobic Blood Culture - Preliminary Blood - Venous - Lab Draw NO GROWTH AFTER 1 DAY Anaerobic Blood Culture - Preliminary NO GROWTH AFTER 1 DAY 12/24/20 16:20 Aerobic Blood Culture - Preliminary Blood - Venous NO GROWTH AFTER 1 DAY Anaerobic Blood Culture - Preliminary NO GROWTH AFTER 1 DAY Med Orders - Current: Current Medications Acetaminophen (Acetaminophen 325 Mg Tab) 650 mg PO Q4H PRN PRN Reason: Pain Last Admin: 12/26/20 07:23 Dose: 650 mg Documented by: Daptomycin 400 mg/ Sodium (Chloride) 8 mls @ 240 mls/hr IVPUSH Q24H JANENE Last Admin: 12/25/20 22:17 Dose: 240 mls/hr Documented by: Ibuprofen (Ibuprofen 400 Mg Tab) 400 mg PO Q6H PRN PRN Reason: Pain Last Admin: 12/26/20 08:41 Dose: 400 mg Documented by: Ondansetron HCl (Ondansetron 4 Mg/2 Ml Sdv) 4 mg IVPUSH Q4H PRN PRN Reason: Nausea Last Admin: 12/26/20 08:40 Dose: 4 mg Documented by: Oxycodone HCl (Oxycodone 5 Mg Tab) 5 mg PO Q6H PRN PRN Reason: Pain Last Admin: 12/26/20 05:11 Dose: 5 mg Documented by: Sodium Chloride (Sodium Chloride 0.9% 2.5 Ml Syringe) 2.5 ml FLUSH ASDIRECTED PRN PRN Reason: Keep Vein Open Discontinued Medications Diphenhydramine HCl (Diphenhydramine 50 Mg/Ml Sdv) 50 mg IVPUSH ONETIME ONE Stop: 12/24/20 18:06 Last Admin: 12/24/20 18:19 Dose: 50 mg Documented by: Vancomycin HCl 1 gm/ Sodium (Chloride) 250 mls @ 166 mls/hr IV ONETIME ONE Stop: 12/24/20 18:33 Last Admin: 12/24/20 17:24 Dose: 166 mls/hr Documented by: Sodium Chloride (Normal Saline) 1,000 mls @ 125 mls/hr IV STAT ONE Stop: 12/25/20 01:03 Last Admin: 12/24/20 17:25 Dose: 125 mls/hr Documented by: Daptomycin 400 mg/ Sodium (Chloride) 20 mls @ 600 mls/hr IVPUSH Q24H JANENE Last Admin: 12/24/20 23:49 Dose: 600 mls/hr Documented by: Daptomycin 400 mg/ Sodium (Chloride) 8 mls @ 240 mls/hr IVPUSH Q24H JANENE
== END 2020-12-26 11:20 | disposition home or self-care (01) ==
LOC: MW.ED 15:31 → MW.MS 17:03
PROVIDERS: ADMIT Internal Medicine; ATTEND Internal Medicine
DX: L03.114 Cellulitis of left upper limb (principal); Z88.8 Allergy status to other drugs, medicaments and biological substances; Z86.16 Personal history of COVID-19; Z20.822 Contact with and (suspected) exposure to COVID-19
CPT/HCPCS: 36415; 73120; 80048; 80053; 81003; 81025; 83605; 85025; 87040; 87070; 87635; 96365; 96375; 99284; A9270; J0878; J1200; J2405; J3370; J7030; J7050; 96376; 99283; G0378; U0002